=== PATIENT | female | born 1945 | race Caucasian/White ===

== ENCOUNTER 2019-06-09 10:51 | Outpatient (CLI) | payer MEDICARE, SELFPAY ==
--- NOTE | ~2019-06-09 | MM_ITS ---
EXAMINATION: MM screening [facility] HISTORY: Screening mammogram TECHNIQUE: Craniocaudal and mediolateral oblique 3-D tomosynthesis images were obtained and synthetic 2-D images were generated. CAD analysis was submitted and interpreted. COMPARISON: 05/30/2018, 05/20/2017, 05/19/2016, 04/29/1915 BREAST PARENCHYMAL COMPOSITION: There are scattered areas of fibroglandular density. FINDINGS: An asymmetry in the middle third of the right breast craniocaudal view has a stable appeara nce on multiple prior examinations. There is no evidence of suspicious mass, calcification, or franklin ectural distortion to suggest malignancy in either breast. There has been no suspicious interval kauffman ge. IMPRESSION: 1. No mammographic evidence of malignancy. 2. Recommend routine screening mammography in one year. BI-RADS Category 2: Benign finding(s). Reviewed, dictated and finalized at location A. AULIC DREDGE OPERATOR
== END 2019-06-09 10:52 | disposition home or self-care (01) ==
PROVIDERS: PCP Family Medicine; Visit Provider Family Medicine
DX: Z12.31 Encounter for screening mammogram for malignant neoplasm of breast (principal)
CPT/HCPCS: 77063; 77067

== ENCOUNTER 2020-06-11 10:23 | Outpatient (CLI) | payer MEDICARE, SELFPAY ==
--- NOTE | ~2020-06-11 | MM_ITS ---
EXAMINATION: MM screening [facility] HISTORY: Screening mammogram TECHNIQUE: Craniocaudal and mediolateral oblique 3-D tomosynthesis images were obtained and synthetic 2-D images were generated. CAD analysis was submitted and interpreted. COMPARISON: 06/09/2019, 05/30/2018, 05/20/2017, 05/19/2016 BREAST PARENCHYMAL COMPOSITION: There are scattered areas of fibroglandular density. FINDINGS: There is no evidence of suspicious mass, calcification, or architectural distortion to sugg est malignancy in either breast. There has been no suspicious interval change. IMPRESSION: 1. No mammographic evidence of malignancy. 2. Recommend routine screening mammography in one year. BI-RADS Category 1: Negative Reviewed, dictated and finalized at location A. WELL LOGGING ENGINEER
== END 2020-06-11 10:24 | disposition home or self-care (01) ==
LOC: CHSIMG 10:26
PROVIDERS: PCP Family Medicine; Visit Provider Family Medicine
DX: Z12.31 Encounter for screening mammogram for malignant neoplasm of breast (principal)
CPT/HCPCS: 77063; 77067

== ENCOUNTER 2021-06-19 10:54 | Outpatient (CLI) | payer MEDICARE, SELFPAY ==
--- NOTE | ~2021-06-19 | MM_ITS ---
EXAMINATION: MM screening [facility] HISTORY: Screening mammogram TECHNIQUE: Craniocaudal and mediolateral oblique 3-D tomosynthesis images were obtained and synthetic 2-D images were generated. CAD analysis was submitted and interpreted. COMPARISON: 06/11/2020, 06/09/2019, 05/30/2018 BREAST PARENCHYMAL COMPOSITION: There are scattered areas of fibroglandular density. FINDINGS: There is no evidence of suspicious mass, calcification, or architectural distortion to sugg est malignancy in either breast. There has been no suspicious interval change. IMPRESSION: 1. No mammographic evidence of malignancy. 2. Recommend routine screening mammography in one year. BI-RADS Category 1: Negative Reviewed, dictated and finalized at location A. OR SITE MANAGER
== END 2021-06-19 10:55 | disposition home or self-care (01) ==
LOC: CHSIMG 10:56
PROVIDERS: PCP Family Medicine; Visit Provider Family Medicine
DX: Z12.31 Encounter for screening mammogram for malignant neoplasm of breast (principal)
CPT/HCPCS: 77063; 77067

== ENCOUNTER 2021-07-12 09:47 | Outpatient (CLI) | payer MEDICARE, SELFPAY ==
[2021-07-12 14:03] LABS: SARS-CoV-2 RNA PCR Negative (Negative)
== END 2021-07-12 09:48 | disposition home or self-care (01) ==
LOC: CHSLAB 09:50
PROVIDERS: PCP Family Medicine; Visit Provider Emergency Medicine
DX: Z01.818 Encounter for other preprocedural examination (principal); Z20.822 Contact with and (suspected) exposure to COVID-19
CPT/HCPCS: C9803; U0003; U0005

== ENCOUNTER 2021-08-09 09:38 | Outpatient (CLI) | payer MEDICARE, SELFPAY ==
[2021-08-09 14:54] LABS: SARS-CoV-2 RNA PCR Negative (Negative)
== END 2021-08-09 09:39 | disposition home or self-care (01) ==
PROVIDERS: PCP Family Medicine; Visit Provider Emergency Medicine
DX: Z20.822 Contact with and (suspected) exposure to COVID-19 (principal)
CPT/HCPCS: C9803; U0003; U0005

== ENCOUNTER 2022-03-14 10:29 | Emergency (ER) | payer MEDICARE, SELFPAY ==
--- NOTE | ~2022-03-14 | CT_ITS ---
EXAMINATION: CT brain wo con DATE: 03/14/2022 11:03 INDICATION: Headache. TECHNIQUE: Computed tomography (CT) of the head was performed without intravenous contrast. The mA wa s adjusted according to patient size. Iterative reconstruction technique was employed. The dose-lengt h product was 605.33 mGy-cm. COMPARISON: None FINDINGS: There are scattered areas of low attenuation in the cerebral white matter. There is no intr acranial hemorrhage, acute infarction, or abnormal intracranial mass lesion. The ventricles are nereida l in size. There are likely changes of ocular lens replacement surgeries. There is mucosal thickening in the paranasal sinuses with thickening and sclerosis of the some of the sinus walsh, consistent wi th chronic sinusitis. The mastoid air cells are normal. IMPRESSION: 1. Moderate nonspecific cerebral white matter disease, which likely represents chronic small vessel i schemic disease. Reviewed, dictated and finalized at location A. IMPRESSION: 1. Moderate nonspecific cerebral white matter disease, which likely represents chronic small vessel ischemic disease.
[2022-03-14 10:35] VITALS: BP 175/77; PULSE 86; RESP 16; TEMP 36.2; O2SAT 95
--- NOTE | 2022-03-14 10:41 | ED.HA ---
HPI - Headache General Chief Complaint: Headache Stated Complaint: headache Time Seen by Provider: 03/14/22 10:38 Source: patient and RN notes reviewed Mode of arrival: ambulatory Limitations: no limitations History of Present Illness HPI Narrative: Patient states that this is the 1st really bad headache she has had. Usually she can take some Tylenol or Motrin and her headache goes away in a couple hours. This was been gone for 3 days. It is causing her to have the dry heaves. She denies any visual changes. MD elicited complaint: headache Onset (ago): day(s) (3) Onset description: gradually Location: frontal Severity: severe Quality & Timing: aching, dull and constant Exacerbating factors: none Relieving factors: nothing Context: occurred at rest Associated symptoms: nausea and vomiting Treatments prior to arrival: acetaminophen and ibuprofen Related Data Home Medications Medication Instructions Recorded Confirmed lisinopril 20 1 tablet PO DAILY 03/14/22 03/14/22 mg-hydrochlorothiazide 25 mg tablet metoprolol tartrate 25 mg tablet 25 mg PO DAILY 03/14/22 03/14/22 omeprazole 40 mg capsule,delayed 40 mg PO DAILY 03/14/22 03/14/22 release Allergies Allergy/AdvReac Type Severity Reaction Status Date / Time sulfanilamide Allergy Unknown Verified 01/01/16 21:13 Sulfa (Sulfonamide AdvReac Unknown VAGINAL Verified 12/24/16 06:30 Antibiotics) INFECTION Review of Systems Review of Systems: All systems reviewed & are unremarkable except as noted in HPI and below Eyes: Eyes: Denies change in vision and Denies photophobia ENT: Denies dizziness PMFSH Past Medical History Medical History (Updated 03/14/22 @ 11:35 by Chacho Leon MD) GERD (gastroesophageal reflux disease) Hypertension Surgical History Surgical History (Updated 03/14/22 @ 10:42 by Chacho Leon MD) H/O inguinal hernia repair Social History Social History Smoking status: Never smoker Second hand tobacco smoke exposure: No Alcohol intake: never Exam Const: General: healthy appearing, no acute distress and alert Nutritional Appearance: well nourished Orientation/consciousness: patient oriented x3 Limitations: no limitations HENMT: Head: normal to inspection Ears: external ears normal Face and sinus: normal facial exam Eyes: Conjunctivae: conjunctivae normal Pupils: Equal, round and reactive pupils present EOM: EOMs intact bilaterally Neck: Neck: normal visual inspection Resp: Effort & Inspection: normal respiratory effort Auscultation: clear to auscultation bilaterally Cardio: Rate: regular rate Rhythm: regular rhythm GI: GI Palp: Yes Soft to palpation and No Tenderness to palpation present (GI) Auscultation: normal bowel sounds Back/Spine/Pelvis: Cervical Spine: cervical ROM normal Thoracic/Lumbar Spine: thoraco-lumbar ROM normal Skin: General skin exam: normal color Rashes: no rashes Neuro: General: patient oriented x3, moves all extremities, no focal motor deficits and CN's II-XI intact bilaterally Cranial nerves: Yes Nystagmus not present Speech: normal speech Gait exam (Neuro): Normal gait present Extrem: General: normal to inspection and no clubbing, cyanosis or edema Psych: Mental Status: mental status grossly normal Affect: normal affect Attitude: cooperative Course Vital Signs Vital signs: Vital Signs Temperature 36.2 C L 03/14/22 10:35 Pulse Rate 86 03/14/22 10:35 Respiratory Rate 16 03/14/22 10:35 Blood Pressure 175/77 H 03/14/22 10:35 Pulse Oximetry 95 03/14/22 10:35 Oxygen Delivery Room Air 03/14/22 10:35 Temperature 36.9 C 03/14/22 12:10 Pulse Rate 84 03/14/22 12:10 Respiratory Rate 20 03/14/22 12:10 Blood Pressure 139/72 03/14/22 12:10 Pulse Oximetry 97 03/14/22 12:10 Oxygen Delivery Room Air 03/14/22 12:10 MDM - Headache MDM Narrative Medical decision making narrative: CT brain scan is negative. Patient having
[2022-03-14] MEDS: KETOROLAC 30 MG/ML VIAL (*BKC) IV PUSH (11:30)
[2022-03-14] MEDS: ONDANSETRON INJ 4 MG/2 ML VIAL IV PUSH (11:31)
[2022-03-14] MEDS: diphenhydrAMINE HCl INJ 50 MG/ML VIAL IV PUSH (11:31)
[2022-03-14 12:10] VITALS: BP 139/72; PULSE 84; RESP 20; TEMP 36.9; O2SAT 97
== END 2022-03-14 12:15 | disposition home or self-care (01) ==
PROVIDERS: Emergency Provider Emergency Medicine; PCP Family Medicine
DX: G44.209 Tension-type headache, unspecified, not intractable (principal); K21.9 Gastro-esophageal reflux disease without esophagitis; I10 Essential (primary) hypertension
CPT/HCPCS: 70450; 96374; 96375; 99284; J1200; J1885; J2405

== ENCOUNTER 2022-03-15 16:23 | Emergency (ER) | payer MEDICARE, SELFPAY ==
[2022-03-15 17:00] VITALS: BP 157/78; PULSE 75; RESP 20; TEMP 37.1; O2SAT 94
--- NOTE | 2022-03-15 17:37 | ED.HA ---
HPI - Headache General Stated Complaint: headache,nausea Time Seen by Provider: 03/15/22 16:26 Source: patient and family Mode of arrival: ambulatory Limitations: no limitations History of Present Illness HPI Narrative: this is a 76-year-old female with history of hypertension has been headaches which is frontal pressure / dull like headaches with nasal congestion bilateral ear pressure left greater than right with postnasal drip with no fever chills has been having some nausea with episodes of vomiting, with no shortness of breath no chest pain. The patient was seen in the emergency department yesterday and had a CT scan which showed no acute abnormalities and was given a injection of pain medicine which relieved her her headache at that time. Currently there is no blurry vision, no neck pain no neck stiffness no fever chills. MD elicited complaint: headache Onset (ago): day(s) Onset description: gradually Location: frontal Severity: moderate Pain scale (0-10): 6 Quality & Timing: dull and steady Exacerbating factors: none Relieving factors: nothing Context: occurred at rest Associated symptoms: nausea and vomiting Related Data Home Medications Medication Instructions Recorded Confirmed lisinopril 20 1 tablet PO DAILY 03/14/22 03/14/22 mg-hydrochlorothiazide 25 mg tablet metoprolol tartrate 25 mg tablet 25 mg PO DAILY 03/14/22 03/14/22 omeprazole 40 mg capsule,delayed 40 mg PO DAILY 03/14/22 03/14/22 release Allergies Allergy/AdvReac Type Severity Reaction Status Date / Time sulfanilamide Allergy Unknown Verified 01/01/16 21:13 Sulfa (Sulfonamide AdvReac Unknown VAGINAL Verified 12/24/16 06:30 Antibiotics) INFECTION Review of Systems Review of Systems: All systems reviewed & are unremarkable except as noted in HPI and below PMFSH Past Medical History Medical History GERD (gastroesophageal reflux disease) Hypertension Surgical History Surgical History H/O inguinal hernia repair Social History Social History Smoking status: Never smoker Second hand tobacco smoke exposure: No Alcohol intake: never Exam Const: General: healthy appearing Nutritional Appearance: well nourished Orientation/consciousness: patient oriented x3 Limitations: no limitations HENMT: Head: normal to inspection Face/Nose/Sinus: Nasal discharge present Face and sinus: normal facial exam and sinus tenderness Mouth: Yes Abnormal oral and palatal mucosa present Teeth and gingiva: dentition normal Throat: posterior oropharynx normal Other: Frontal sinus tenderness with palpation Eyes: Conjunctivae: conjunctivae normal Pupils: Equal, round and reactive pupils present EOM: EOMs intact bilaterally Neck: Neck: normal visual inspection Chest: Chest palpation & inspection: normal inspection of the chest Resp: Effort & Inspection: normal respiratory effort Auscultation: clear to auscultation bilaterally Cardio: Rate: regular rate Rhythm: regular rhythm GI: GI Palp: Yes Soft to palpation Auscultation: normal bowel sounds Urinary Catheter: Urinary Catheter: patent and draining Skin: General skin exam: normal color Rashes: no rashes Wounds: no wounds Neuro: General: patient oriented x3, moves all extremities, no meningeal signs and no focal motor deficits Cranial nerves: Yes Nystagmus not present Speech: normal speech Gait exam (Neuro): Normal gait present Extrem: General: normal to inspection and no clubbing, cyanosis or edema Psych: Mental Status: mental status grossly normal Affect: normal affect Course Course Emergency Course: patient received IM Toradol and ODT Zofran and a dose of ceftriaxone otherwise reassured patient that with her symptoms she has sinusitis which is causing her headaches. Vital Signs Vital signs: Vital S
[2022-03-15] MEDS: KETOROLAC 30 MG/ML VIAL (*BKC) IM (18:15)
[2022-03-15] MEDS: cefTRIAXone 1 GM, LIDOCAINE HCL 1% LOCAL INJ 2.1 ML IM (18:16)
[2022-03-15] MEDS: ONDANSETRON HCL ODT 4 MG TABLET PO (18:17)
[2022-03-15 18:23] VITALS: BP 140/77; PULSE 68; RESP 20; TEMP 36.9; O2SAT 95
== END 2022-03-15 18:40 | disposition home or self-care (01) ==
PROVIDERS: Emergency Provider Emergency Medicine; PCP Family Medicine
DX: R51.9 Headache, unspecified (principal); J01.10 Acute frontal sinusitis, unspecified; K21.9 Gastro-esophageal reflux disease without esophagitis; I10 Essential (primary) hypertension
CPT/HCPCS: 96372; 99284; A9270; J0696; J1885

== ENCOUNTER 2022-03-19 11:03 | Outpatient (CLI) | payer MEDICARE, SELFPAY ==
[2022-03-19 11:19] LABS: Basophils Absolute Auto 0.02 K/mm3 (0.00-0.10); Basophils Percent Auto 0.4 % (0.0-1.0); Hematocrit 45.1 % (35.0-42.0); Hemoglobin 15.9 g/dL (11.7-13.8); Immature Granulocyte Absolute 0.02 K/mm3 (0.00-0.00); Immature Granulocyte Percent A 0.4 % (0.0-0.0); Lymphocytes Absolute Auto 0.95 K/mm3 (1.10-4.50); Lymphocytes Percent Auto 18.2 % (18.0-42.0); Mean Corpuscular HGB Conc 35.3 g/dL (32.0-36.0); Mean Corpuscular Hemoglobin 26.8 pg (27.0-31.0); Mean Corpuscular Volume 75.9 fL (78.0-102.0); Mean Platelet Volume 9.2 fl (9.2-11.8); Monocytes Absolute Auto 0.77 K/mm3 (0.10-0.90); Monocytes Percent Auto 14.7 % (2.0-11.0); Neutrophils Absolute Auto 3.5 K/mm3 (1.7-7.2); Neutrophils Percent Auto 66.3 % (50.0-70.0); Platelet Count Result 255 K/mm3 (150-420); Red Blood Count 5.94 M/mm3 (4.20-5.40); Red Cell Distribution Width 12.3 % (11.6-14.4); White Blood Count 5.2 K/mm3 (4.8-10.8)
[2022-03-19 12:19] LABS: Alanine Aminotransferase 57 U/L (14-59); Albumin Level 3.6 g/dL (3.4-5.0); Alkaline Phosphatase 92 U/L (46-116); Amylase 21 U/L (25-115); Aspartate Amino Transferase 45 U/L (15-37); Bilirubin,Total 0.8 mg/dL (0.00-1.00); Blood Urea Nitrogen 9 mg/dL (7-18); Calcium 8.4 mg/dL (8.5-10.1); Carbon Dioxide 24 mmol/L (21-32); Estimated Glomerular Filt Rate > 60; Glucose 80 mg/dL (70-99); Lipase 120 U/L (73-393); Thyroid Stimulating Hormone 0.47 uIU/mL (0.36-3.74)
[2022-03-19 12:27] LABS: Anion Gap 12 mmol/L (8-16); Chloride 77 mmol/L (98-108); Osmolality Calculated 233 mOsm/kg (285-295); Potassium 3.3 mmol/L (3.5-5.1)
[2022-03-19 12:30] LABS: Sodium 113 mmol/L (136-145)
[2022-03-19 15:45] LABS: Appearance Urine Clear (Clear); Color Urine Light Yellow (Yellow)
[2022-03-19 15:46] LABS: Add Urine Microscopic? YES; Bilirubin Urine Negative (Negative); Blood Urine Negative (Negative); Glucose Urine UA Negative (Negative); Ketones Urine 3+ (Negative); Leukocyte Esterase Ur 2+ LEU/UL (Negative); Nitrate Urine Negative (Negative); Protein Urine Trace (Negative); RBC Urine None seen /hpf (0-2); Specific Grav Ur 1.025 (1.010-1.020); Urobilinogen Urine 0.2 mg/dL (0.2-1.0)
[2022-03-19 15:47] LABS: Bacteria Urine 1+ /hpf; Squamous Epithelial Cell Urine Few /hpf (Few)
== END 2022-03-19 11:04 | disposition home or self-care (01) ==
LOC: CHSLAB 11:05
PROVIDERS: PCP Family Medicine; Visit Provider Family Medicine
DX: R11.10 Vomiting, unspecified (principal); I10 Essential (primary) hypertension; R82.90 Unspecified abnormal findings in urine
CPT/HCPCS: 99199; 36415; 80053; 81001; 82150; 83690; 84443; 85025; 87086; 87088

== ENCOUNTER 2022-03-19 13:43 | Inpatient (IN) | payer MEDICARE, SELFPAY ==
[2022-03-19] VITALS (7 sets, daily range): BP systolic 97–147; BP diastolic 68–80; PULSE 67–80; RESP 16–18; TEMP 36.9–37.3; O2SAT 96–98; BMI 31.3
--- NOTE | 2022-03-19 14:07 | ED.GENADULT ---
HPI - General Adult General Chief complaint: Unspecified Stated complaint: CRITICAL BLOOD WORK Time Seen by Provider: 03/19/22 13:56 History of Present Illness HPI narrative: Margaux is a 76F with a PMH of GERD and HTN that presented to the ED with a critical sodium of 113. She has been feeling ill for 7 days. She started to have a headache for the first 3 days then became very nauseated and started to dry heave. She has not tolerated much PO since and continues to get worse. Headache is improved. There is no CP, SOB, or diarrhea. Related Data Home Medications Medication Instructions Recorded Confirmed lisinopril 20 1 tablet PO DAILY 03/14/22 03/19/22 mg-hydrochlorothiazide 25 mg tablet metoprolol tartrate 25 mg tablet 25 mg PO DAILY 03/14/22 03/19/22 omeprazole 40 mg capsule,delayed 40 mg PO DAILY 03/14/22 03/19/22 release Allergies Allergy/AdvReac Type Severity Reaction Status Date / Time sulfanilamide Allergy Unknown Unknown Verified 03/19/22 14:00 Sulfa (Sulfonamide AdvReac Unknown VAGINAL Verified 03/19/22 14:00 Antibiotics) INFECTION Review of Systems Review of Systems: All systems reviewed & are unremarkable except as noted in HPI and below PMFSH Past Medical History Medical History GERD (gastroesophageal reflux disease) Hypertension Surgical History Surgical History H/O inguinal hernia repair Social History Social History Smoking status: Never smoker Second hand tobacco smoke exposure: No Alcohol intake: never Exam Const: Orientation/consciousness: oriented to person, oriented to place and oriented to time Limitations: no limitations HENMT: Head: normal to inspection and normocephalic Other: dry mucous membranes Eyes: General: appearance normal, both eyes and all related structures Visual Vazquez: normal visual vazquez by confrontation Neck: Neck: normal visual inspection Chest: Chest palpation & inspection: normal inspection of the chest Resp: Effort & Inspection: normal respiratory effort Auscultation: clear to auscultation bilaterally Cardio: Jugular venous distension: no JVD Rate: regular rate Rhythm: regular rhythm GI: Inspection: normal to inspection Skin: General skin exam: normal color Other: skin tenting Neuro: General: oriented to person, oriented to place and oriented to time Psych: Appearance: grossly normal and well kempt Mental Status: mental status grossly normal Course Course Emergency Course: Na was 112 and K+ was 3.0. Started IV fluids. Called Damaso who accepted admission at 1514. She was admitted for further care Vital Signs Vital signs: Vital Signs Temperature 98.5 F 03/19/22 14:02 Pulse Rate 75 03/19/22 14:02 Respiratory Rate 18 03/19/22 14:02 Blood Pressure 147/80 H 03/19/22 14:02 Pulse Oximetry 96 03/19/22 14:02 Oxygen Delivery Room Air 03/19/22 14:02 Temperature 99.1 F 03/19/22 17:56 Pulse Rate 80 03/19/22 17:56 Respiratory Rate 16 03/19/22 17:56 Blood Pressure 137/70 03/19/22 17:56 Pulse Oximetry 97 03/19/22 17:56 Oxygen Delivery Room Air 03/19/22 17:56 Medical Decision Making Vital Signs Vital Signs: Vital Signs Temperature 98.5 F 03/19/22 14:02 Pulse Rate 75 03/19/22 14:02 Respiratory Rate 18 03/19/22 14:02 Blood Pressure 147/80 H 03/19/22 14:02 Pulse Oximetry 96 03/19/22 14:02 Oxygen Delivery Room Air 03/19/22 14:02 Temperature 99.1 F 03/19/22 17:56 Pulse Rate 80 03/19/22 17:56 Respiratory Rate 16 03/19/22 17:56 Blood Pressure 137/70 03/19/22 17:56 Pulse Oximetry 97 03/19/22 17:56 Oxygen Delivery Room Air 03/19/22 17:56 Lab Data Result diagrams: 03/19/22 14:05 Labs: Lab Results 03/19/22 03/19/22 03/19/22 Range/Units 14:05 1
[2022-03-19 14:49] LABS: Appearance Urine Clear (Clear); Bilirubin Urine Negative (Negative); Blood Urine Negative (Negative); Glucose Urine UA Negative (Negative); Ketones Urine 3+ (Negative); Leukocyte Esterase Ur 2+ (Negative); Nitrate Urine Negative (Negative); Protein Urine Trace (Negative); Specific Grav Ur 1.025 (1.010-1.020); Urobilinogen Urine 0.2 mg/dL (0.2-1.0)
[2022-03-19 14:54] LABS: Add Urine Microscopic? YES; Bacteria Urine 1+ /hpf; Color Urine Light Yellow (Yellow); Creatinine Urine 107.09 mg/dL (40-278); RBC Urine None seen /hpf (0-2); Sodium Urine Random 43 mmol/L (20-110); Squamous Epithelial Cell Urine Few /hpf (Few)
[2022-03-19 15:04] LABS: Alanine Aminotransferase 50 U/L (14-59); Albumin Level 3.5 g/dL (3.4-5.0); Alkaline Phosphatase 90 U/L (46-116); Anion Gap 12 mmol/L (8-16); Aspartate Amino Transferase 41 U/L (15-37); Bilirubin,Total 0.7 mg/dL (0.00-1.00); Blood Urea Nitrogen 8 mg/dL (7-18); Calcium 8.2 mg/dL (8.5-10.1); Carbon Dioxide 23 mmol/L (21-32); Chloride 77 mmol/L (98-108); Estimated CRCL calculation 80 ml/min; Estimated Glomerular Filt Rate > 60; Glucose 80 mg/dL (70-99); Osmolality Calculated 231 mOsm/kg (285-295); Total Protein 7.1 g/dL (6.4-8.2)
[2022-03-19 15:05] LABS: Sodium 112 mmol/L (136-145)
[2022-03-19] MEDS: ONDANSETRON INJ 4 MG/2 ML VIAL IV PUSH ×2 (15:17→19:57)
[2022-03-19] MEDS: SODIUM CHLORIDE 0.9% IV 1,000 ML 200 ML IV CONT (15:17)
[2022-03-19 15:23] LABS: Influenza A QL RT-PCR Negative (Negative); Influenza B QL RT-PCR Negative (Negative)
[2022-03-19 15:25] LABS: RSV RNA, RT-PCR Negative (Negative)
[2022-03-19 15:38] LABS: SARS-CoV-2 RNA PCR Positive (Negative)
--- NOTE | 2022-03-19 17:12 | ECG_ITS ---
Measurements Intervals [place] Rate: 70 P: 66 OK: 196 QRS: -2 QRSD: 94 T: 16 QT: 422 QTc: 456 Interpretive Statements SINUS RHYTHM EARLY PRECORDIAL R/S TRANSITION BASELINE ARTIFACT- I, II, III, AVR, AVL, AVF BORDERLINE ECG NO PREVIOUS ECG AVAILABLE FOR COMPARISON Electronically Signed On 03-19-2022 20:10:17 [employer] by Edgardo Marquis D.O.
[2022-03-19] MEDS: SODIUM CHLORIDE 0.9% IV 1,000 ML 100 ML IV CONT ×2 (17:30→23:12)
--- NOTE | 2022-03-19 17:30 | ADMGEN ---
This patient, Margaux Saldivar, was admitted to 2nd Floor Room 208-1. Patient/family oriented to hospital policies and general routines including ID bracelet, bed and alarms, visiting hours, pain management, procedures, bathroom and other care routines, personal items, smoking policy, room service/diet, and visiting hours. Information on how to activate the Rapid Response Team has been discussed. Patient/Family are encouraged to report perceived risks to care and to ask questions if they do not understand what they are told or what they should do.
[2022-03-20] VITALS (10 sets, daily range): BP systolic 119–153; BP diastolic 54–79; PULSE 66–89; RESP 16–18; TEMP 36.6–37; O2SAT 95–97
[2022-03-20 05:12] LABS: Basophils Absolute Auto 0.02 K/mm3 (0.00-0.10); Basophils Percent Auto 0.4 % (0.0-1.0); Eosinophils Absolute Auto 0.02 K/mm3 (0.02-0.50); Eosinophils Percent Auto 0.4 % (1.0-6.0); Hematocrit 40.4 % (35.0-42.0); Hemoglobin 14.3 g/dL (11.7-13.8); Immature Granulocyte Absolute 0.01 K/mm3 (0.00-0.00); Immature Granulocyte Percent A 0.2 % (0.0-0.0); Lymphocytes Absolute Auto 1.56 K/mm3 (1.10-4.50); Lymphocytes Percent Auto 31.3 % (18.0-42.0); Mean Corpuscular HGB Conc 35.4 g/dL (32.0-36.0); Mean Corpuscular Hemoglobin 27.2 pg (27.0-31.0); Mean Corpuscular Volume 76.8 fL (78.0-102.0); Mean Platelet Volume 9.6 fl (9.2-11.8); Monocytes Absolute Auto 0.58 K/mm3 (0.10-0.90); Monocytes Percent Auto 11.6 % (2.0-11.0); Neutrophils Absolute Auto 2.8 K/mm3 (1.7-7.2); Neutrophils Percent Auto 56.1 % (50.0-70.0); Platelet Count Result 227 K/mm3 (150-420); Red Blood Count 5.26 M/mm3 (4.20-5.40); Red Cell Distribution Width 12.5 % (11.6-14.4)
[2022-03-20 05:22] LABS: Anion Gap 13 mmol/L (8-16); Blood Urea Nitrogen 7 mg/dL (7-18); Calcium 7.7 mg/dL (8.5-10.1); Carbon Dioxide 21 mmol/L (21-32); Chloride 86 mmol/L (98-108); Estimated CRCL calculation 80 ml/min; Estimated Glomerular Filt Rate > 60; Glucose 72 mg/dL (70-99); Osmolality Calculated 247 mOsm/kg (285-295)
[2022-03-20 05:23] LABS: Potassium 2.5 mmol/L (3.5-5.1); Sodium 120 mmol/L (136-145)
--- NOTE | 2022-03-20 05:25 | PC.NURSE ---
Lab called to report critical sodium value of 120.
--- NOTE | 2022-03-20 05:52 | PC.NURSE ---
Allan Fernandez NP, notified of critical sodium value of 120; No new orders at this time.
--- NOTE | 2022-03-20 08:07 | PC.NURSE ---
patient changed to IP status
[2022-03-20] MEDS: KCL 20 MEQ/SW 100 ML 100 ML 50 MEQ IVPB (09:17)
[2022-03-20] MEDS: METOPROLOL TARTRATE 25 MG TABLET PO (09:18)
[2022-03-20] MEDS: PANTOPRAZOLE SODIUM IV 40 MG VIAL IV PUSH (09:18)
[2022-03-20] MEDS: SODIUM CHLORIDE 0.9% IV 1,000 ML 75 ML IV CONT ×3 (10:05→23:52)
--- NOTE | 2022-03-20 10:35 | PM.IMHP ---
H&P: HPI History of Present Illness Date/Time: 03/20/22 10:35 Chief Complaint: Hyponatremia, Covid, diarrhea, Nausea and vomiting Narrative: This is a 6-year-old female that presents to the emergency room complaining of nausea vomiting dry heaving and diarrhea this been going on for approximately 4-5 days. Patient has been in the emergency room 3 times over the last week and she also have a headache. Patient has a past medical history of hypertension, acid reflux. Patient denies: Her primary care provider when she arrives she tested positive for COVID she was hyponatremic at 112 initially hypokalemic at 3.0 this morning she is currently 3 2.5 receiving IV potassium. Patient has been placed in isolation for droplet precautions as well as receiving some IV fluids with some fluid restriction as well as symptomatic treating for any COVID like symptoms patient has been placed as an patient is on a tele monitor. We will continue to slowly raise her sodium levels every planus her potassium this time patient does not have any nausea vomiting and/or diarrhea. Review of Systems Review of Systems: nausea, vomiting, diarrhea All systems reviewed & are unremarkable except as noted in HPI and below PMFSH Past Medical History Medical History (Updated 03/20/22 @ 10:40 by Damaso Fernandez NP) GERD (gastroesophageal reflux disease) Hypertension Surgical History Surgical History H/O inguinal hernia repair Social History Social History Smoking status: Never smoker Second hand tobacco smoke exposure: No Alcohol intake: unknown Substance use: unknown Lack of Transportation: No Lack of Food: Never True Current Housing: I Have Housing Concerned About Future Housing: No Difficulty Paying Gas/Electric Bills: No Difficulty Paying for Meds: No Currently Unemployed: No Education: High School Diploma/GED Difficulty w/ Childcare or Family Care: No Spiritual care concerns: No Comments At time as signature, I have reviewed and agree with nursing past medical, social, surgical and family history. Please see nursing chart for further information. There is no relevant family history pertinent to the presenting complaint. Meds Home Medications and Allergies Home Medications Medication Instructions Recorded Confirmed Type lisinopril 20 1 tablet PO DAILY 03/14/22 03/19/22 History mg-hydrochlorothiazide 25 mg tablet metoprolol tartrate 25 mg tablet 25 mg PO DAILY 03/14/22 03/19/22 History omeprazole 40 mg capsule,delayed 40 mg PO DAILY 03/14/22 03/19/22 History release azithromycin 250 mg tablet See Rx Instructions PO .COMPLEX #6 03/15/22 03/19/22 Rx (Zithromax Z-Yogesh) tabs fluticasone propionate 50 2 spray intranasal DAILY #16 grams 03/15/22 03/19/22 Rx mcg/actuation nasal spray,suspension (Flonase Allergy Relief) ondansetron 4 mg disintegrating 4 mg PO Q6H PRN nausea and 03/15/22 03/19/22 Rx tablet vomiting #7 tabs tramadol 50 mg tablet 50 mg PO Q6H PRN pain #20 tabs 03/15/22 03/19/22 Rx Allergies Allergy/AdvReac Type Severity Reaction Status Date / Time sulfanilamide Allergy Unknown Unknown Verified 03/19/22 14:00 Sulfa (Sulfonamide AdvReac Unknown VAGINAL Verified 03/19/22 14:00 Antibiotics) INFECTION Vital Signs Vital Signs - 24 hr 03/19/22 14:02 03/19/22 16:42 03/19/22 17:56 Temperature 98.5 F 99.1 F Pulse Rate 75 70 80 Respiratory Rate 18 18 16 Blood Pressure 147/80 H 97/73 L 137/70 Pulse Oximetry 96 98 97 Oxygen Delivery Room Air Room Air Room Air 03/19/22 19:41 03/19/22 21:39 03/19/22 23:22 Temperature 98.7 F 98.6 F Pulse Rate 72 70 71 Respiratory Rate 16 17 Blood Pressure 138/68 146/68 H Pulse Oximetry 97 96 Oxygen Delivery Room Air Room Air 03/19/22 23:23 03/20/22 03:20 03/20/22 04:00 Temperature 98.5 F Pulse Rate 67 70 88 Res
[2022-03-21] VITALS (10 sets, daily range): BP systolic 118–147; BP diastolic 53–73; PULSE 64–90; RESP 15–18; TEMP 36.7–37.1; O2SAT 94–96
[2022-03-21 06:59] LABS: Basophils Absolute Auto 0.03 K/mm3 (0.00-0.10); Basophils Percent Auto 0.5 % (0.0-1.0); Eosinophils Absolute Auto 0.03 K/mm3 (0.02-0.50); Eosinophils Percent Auto 0.5 % (1.0-6.0); Hematocrit 40.8 % (35.0-42.0); Immature Granulocyte Absolute 0.02 K/mm3 (0.00-0.00); Immature Granulocyte Percent A 0.4 % (0.0-0.0); Lymphocytes Absolute Auto 1.94 K/mm3 (1.10-4.50); Mean Corpuscular HGB Conc 34.3 g/dL (32.0-36.0); Mean Corpuscular Hemoglobin 26.7 pg (27.0-31.0); Mean Corpuscular Volume 77.9 fL (78.0-102.0); Mean Platelet Volume 9.6 fl (9.2-11.8); Monocytes Absolute Auto 0.57 K/mm3 (0.10-0.90); Monocytes Percent Auto 10.3 % (2.0-11.0); Neutrophils Percent Auto 53.3 % (50.0-70.0); Platelet Count Result 224 K/mm3 (150-420); Red Blood Count 5.24 M/mm3 (4.20-5.40); White Blood Count 5.5 K/mm3 (4.8-10.8)
[2022-03-21 07:15] LABS: Alanine Aminotransferase 39 U/L (14-59); Albumin Level 2.8 g/dL (3.4-5.0); Alkaline Phosphatase 68 U/L (46-116); Anion Gap 10 mmol/L (8-16); Aspartate Amino Transferase 29 U/L (15-37); Bilirubin,Total 0.5 mg/dL (0.00-1.00); Blood Urea Nitrogen 6 mg/dL (7-18); Calcium 7.6 mg/dL (8.5-10.1); Carbon Dioxide 24 mmol/L (21-32); Chloride 96 mmol/L (98-108); Estimated CRCL calculation 80 ml/min; Estimated Glomerular Filt Rate > 60; Glucose 86 mg/dL (70-99); Osmolality Calculated 266 mOsm/kg (285-295); Sodium 130 mmol/L (136-145); Total Protein 5.9 g/dL (6.4-8.2)
[2022-03-21] MEDS: PANTOPRAZOLE SODIUM IV 40 MG VIAL IV PUSH (08:44)
[2022-03-21] MEDS: METOPROLOL TARTRATE 25 MG TABLET PO (08:44)
[2022-03-21] MEDS: POTASSIUM CHLORIDE 20 MEQ TABLET PO ×2 (08:44→17:50)
--- NOTE | 2022-03-21 11:26 | WPDPN ---
Progress Note: A&P Assessment and Plan (1) Acute hyponatremia: Code(s): E87.1 - Hypo-osmolality and hyponatremia Status: Acute Assessment and Plan: Fluid restriction 1800 ml IVF hold diuretics monitor level raise slowly level 113>120>130 (2) COVID-19: Code(s): U07.1 - COVID-19 Status: Acute Assessment and Plan: Droplet isolation monitor for symptoms and treat No Covid symptoms (3) Hypertension: Code(s): I10 - Essential (primary) hypertension Status: Acute Assessment and Plan: monitor blood pressure continue w home medication adjust accordingly blood pressure remains within normal limt (4) GERD (gastroesophageal reflux disease): Code(s): K21.9 - Gastro-esophageal reflux disease without esophagitis Status: Acute Assessment and Plan: Protonix No nausea and or vomiting Resolved (5) UTI (urinary tract infection): Code(s): N39.0 - Urinary tract infection, site not specified Status: Acute Assessment and Plan: Culture sent [place] (6) Hypokalemia: Code(s): E87.6 - Hypokalemia Status: Acute Assessment and Plan: 2.5>3.0 IV potassium 03/20 oral potassium 03/22 will continue to monitor electrolytes Subjective Date/time seen: 03/21/22 11:26 Interval history: Patient is looking and doing a lot better. Her sodium is currently 130 with no nausea and or vomiting she is up in a chair with no covid symptom noted. Patient continues to remain afebrile and she is eating and drinking without difficulties. Discussed with patient she will stay one more night with plan to discharge in the morning. Review of Systems Review of Systems: All systems reviewed & are unremarkable except as noted in HPI and below Exam Narrative: GENERAL:Well-appearing,frail , and in no acute distress. HEAD:Normocephalic, atraumatic. EYES: PERRLA . ENT: Mucous membranes moist. CHEST: Clear to auscultation. No respiratory distress. HEART: Regular rate and rhythm Normal peripheral pulses. ABDOMEN: Soft, nontender, nondistended, normal active bowel sounds. EXTREMITIES: Normal range of motion. No edema. SKIN: Warm, dry, no rash. NEURO: No focal deficits. Alert and oriented x3. Objective Data Vital Signs Vital Signs: Vital Signs - 24 hr 03/20/22 12:00 03/20/22 12:00 03/20/22 16:30 Temperature 98.5 F Pulse Rate 75 75 81 Respiratory Rate 16 Blood Pressure 129/62 Pulse Oximetry 97 Oxygen Delivery Room Air 03/20/22 16:30 03/20/22 19:45 03/20/22 20:00 Temperature 98.3 F 98.6 F Pulse Rate 66 70 70 Respiratory Rate 18 16 Blood Pressure 119/54 L 140/68 Pulse Oximetry 97 96 Oxygen Delivery Room Air Room Air 03/20/22 23:03 03/21/22 00:00 03/21/22 03:12 Temperature 98.7 F Pulse Rate 89 64 90 Respiratory Rate 15 Blood Pressure 118/63 Pulse Oximetry 95 Oxygen Delivery Room Air 03/21/22 04:00 03/21/22 07:50 03/21/22 08:05 Temperature 98.3 F 98.2 F Pulse Rate 76 73 82 Respiratory Rate 16 16 Blood Pressure 122/73 129/69 Pulse Oximetry 94 96 Oxygen Delivery Room Air Room Air 03/21/22 08:44 Temperature Pulse Rate 73 Respiratory Rate Blood Pressure Pulse Oximetry Oxygen Delivery Intake/Output Intake/Output: Intake & Output 03/18/22 03/19/22 03/20/22 03/21/22 23:59 23:59 23:59 23:59 Intake Total 1360 3086.25 280 Output Total 2250 1650 Balance 1360 836.25 -1370 Meds/Results Medications: Active Medications Generic Name Dose Route Start Last Admin Trade Name Freq PRN Reason Stop Dose Admin Acetaminophen 650 mg 03/19/22 15:23 Acetaminophen 325 Mg Tablet PO Q6H PRN Mild Pain (1-3) or Fever Enoxaparin Sodium 40 mg 03/20/22 09:00 03/21/22 08:45 Enoxaparin 40 Mg/0.4 Ml Syringe SUB-Q Not Given DAILY CRYSTAL Sodium Chloride 1,000 mls @ 75 mls/hr 03/19/22 15:25 03/20/22 23:52 Normal Salin
[2022-03-22 03:04] LABS: Osmolality, Urine 751 mOsm/kg (50-1200)
--- NOTE | 2022-03-22 03:19 | PC.NURSE ---
Patient was sleeping when the 3 am rounding was completed. Patient appeared to be comfortable, and her call light and water was within reach.
[2022-03-22 05:21] LABS: Hematocrit 38.8 % (35.0-42.0); Hemoglobin 13.2 g/dL (11.7-13.8); Mean Corpuscular Hemoglobin 26.8 pg (27.0-31.0); Mean Corpuscular Volume 78.7 fL (78.0-102.0); Mean Platelet Volume 9.6 fl (9.2-11.8); Platelet Count Result 225 K/mm3 (150-420); Red Blood Count 4.93 M/mm3 (4.20-5.40); Red Cell Distribution Width 13.2 % (11.6-14.4); White Blood Count 4.7 K/mm3 (4.8-10.8)
[2022-03-22 05:39] LABS: Anion Gap 8 mmol/L (8-16); Blood Urea Nitrogen 5 mg/dL (7-18); Carbon Dioxide 26 mmol/L (21-32); Chloride 97 mmol/L (98-108); Estimated CRCL calculation 89 ml/min; Estimated Glomerular Filt Rate > 60; Glucose 116 mg/dL (70-99); Osmolality Calculated 270 mOsm/kg (285-295); Potassium 3.4 mmol/L (3.5-5.1); Sodium 131 mmol/L (136-145)
[2022-03-22 08:00] VITALS: BP 130/65; PULSE 75; RESP 16; TEMP 36.8; O2SAT 94
--- NOTE | 2022-03-22 08:47 | PM.DS ---
DS: Admitting Diagnosis Discharge Date 03/22/2022 Admitting Diagnosis Urinary Tract infection , COVID, Hyponatremia DS: Discharge Diagnosis Discharge Diagnosis (1) Hypokalemia: Code(s): E87.6 - Hypokalemia Status: Acute Assessment and Plan: 2.5>3.0 IV potassium 03/20 oral potassium 03/22 will continue to monitor electrolytes (2) UTI (urinary tract infection): Code(s): N39.0 - Urinary tract infection, site not specified Status: Acute Assessment and Plan: Culture sent [place] (3) COVID-19: Code(s): U07.1 - COVID-19 Status: Acute Assessment and Plan: Droplet isolation monitor for symptoms and treat No Covid symptoms (4) Hypertension: Code(s): I10 - Essential (primary) hypertension Status: Acute Assessment and Plan: monitor blood pressure continue w home medication adjust accordingly blood pressure remains within normal limt (5) Acute hyponatremia: Code(s): E87.1 - Hypo-osmolality and hyponatremia Status: Acute Assessment and Plan: Fluid restriction 1800 ml IVF hold diuretics monitor level raise slowly level 113>120>130 (6) GERD (gastroesophageal reflux disease): Code(s): K21.9 - Gastro-esophageal reflux disease without esophagitis Status: Acute Assessment and Plan: Protonix No nausea and or vomiting Resolved DS: Summary Hospital Course Reason for hospitalization: Covid, hyponatremia, hypokalemia. n./v Hospital Course: This is a 76-year-old female that was admitted to the hospital with COVID found to be hyponatremic at 1:12 a.m., and hypokalemic at 2.9 patient received some IV potassium her current potassium level is 4.3, patient was placed on fluid restriction as well as received some IV fluids current sodium is 133. Patient was positive for COVID but had no respiratory issues noted patient had no nausea or vomiting during her stay was able to eat and drink without any disc focal days. Patient has continued to improve she has remained afebrile sitting up to a chair headache has since resolved. We have since ordered patient some oral Zofran and we continue to monitor her electrolytes and she has remained stable at this time patient will discharge home with follow-up with her primary care provider. Any anticipatory needs have been discussed with patient when to return to the hospital. Patient is a knowledge understanding and is in agreement with plan. Current vitals is 130/65, 84 pulse, respirations 16, temp is 98.3?, 96% on room air, potassium 4.3, sodium is 133, BUN is 10, creatinine 0.63, WBCs 7.7, hemoglobin is 14, and platelets are 421 Time Spent with Patient Time attestation: Total time spent providing and/or coordinating discharge services: Exam Narrative: GENERAL:Well-appearing,frail , and in no acute distress. HEAD:Normocephalic, atraumatic. EYES: PERRLA . ENT: Mucous membranes moist. CHEST: Clear to auscultation. No respiratory distress. HEART: Regular rate and rhythm Normal peripheral pulses. ABDOMEN: Soft, nontender, nondistended, normal active bowel sounds. EXTREMITIES: Normal range of motion. No edema. SKIN: Warm, dry, no rash. NEURO: No focal deficits. Alert and oriented x3. DS: Data Data Completed and Pending Labs on day of discharge: Labs from last 24 hours 03/22/22 03/22/22 03/19/22 05:03 05:03 14:05 WBC 4.7 L RBC 4.93 Hgb 13.2 Hct 38.8 MCV 78.7 MCH 26.8 L MCHC 34.0 RDW 13.2 Plt Count 225 MPV 9.6 Sodium 131 L Potassium 3.4 L Chloride 97 L Carbon Dioxide 26 Anion Gap 8 BUN 5 L Creatinine 0.43 L Estim Creat Clear Calc 89 Estimated GFR > 60 Glucose 116 H Calculated Osmolality 270 L Calcium 8.0 L Urine Osmolality 751 Discharge Plan Discharge Attending physician on discharge: Caleb Ruiz Consulting providers: Damaso Fernandez
[2022-03-22] MEDS: ENOXAPARIN 40 MG/0.4 ML SYRINGE SUB-Q (08:49)
[2022-03-22 08:50] VITALS: PULSE 84
[2022-03-22] MEDS: POTASSIUM CHLORIDE 20 MEQ TABLET PO (08:50)
[2022-03-22] MEDS: METOPROLOL TARTRATE 25 MG TABLET PO (08:50)
[2022-03-22] MEDS: PANTOPRAZOLE SODIUM IV 40 MG VIAL IV PUSH (08:52)
--- NOTE | 2022-03-22 10:35 | PC.NURSE ---
Ball Holder explained discharge instructions to patient and patient voiced understanding. IV access removed in preparation for discharge.
--- NOTE | 2022-03-22 10:40 | PC.NURSE ---
Patient discharged to home. Patient left unit in w/c accompanied by nurse. Personal belongings sent home with patient. Patient voiced understanding of discharge instructions. Patient left property in private vehicle.
--- NOTE | 2022-03-24 09:44 | PC.NURSE ---
Pt states she received and understood her discharge instructions. Pt states she is not happy with the ER and would like a survey sent to her. title department manager notified.
== END 2022-03-22 10:40 | disposition home or self-care (01) | DRG 178 ==
LOC: CHSED 14:53 → CHS2ND 18:37
PROVIDERS: Nurse Practitioner Family; Admitting Provider Internal Medicine; Emergency Provider Family Medicine; PCP Family Medicine; Visit Provider Internal Medicine
DX: U07.1 COVID-19 (principal); E87.1 Hypo-osmolality and hyponatremia; N39.0 Urinary tract infection, site not specified; E87.6 Hypokalemia; K21.9 Gastro-esophageal reflux disease without esophagitis; I10 Essential (primary) hypertension
CPT/HCPCS: 36415; 80048; 80053; 81001; 82150; 82570; 83690; 83935; 84300; 84443; 84540; 85025; 85027; 87086; 87088; 87502; 87634; 93005; 96361; 96374; 96376; 99285; A9270; C9113; G0378; J0696; J1650; J2405; J3480; J7030; U0003; U0005

== ENCOUNTER 2022-03-28 10:49 | Outpatient (CLI) | payer MEDICARE, SELFPAY ==
[2022-03-28 11:06] LABS: Basophils Absolute Auto 0.05 K/mm3 (0.00-0.10); Basophils Percent Auto 0.7 % (0.0-1.0); Eosinophils Absolute Auto 0.06 K/mm3 (0.02-0.50); Eosinophils Percent Auto 0.8 % (1.0-6.0); Hematocrit 42.3 % (35.0-42.0); Immature Granulocyte Absolute 0.02 K/mm3 (0.00-0.00); Immature Granulocyte Percent A 0.3 % (0.0-0.0); Lymphocytes Absolute Auto 2.41 K/mm3 (1.10-4.50); Lymphocytes Percent Auto 31.5 % (18.0-42.0); Mean Corpuscular HGB Conc 33.1 g/dL (32.0-36.0); Mean Corpuscular Hemoglobin 27.1 pg (27.0-31.0); Mean Platelet Volume 8.8 fl (9.2-11.8); Monocytes Absolute Auto 0.74 K/mm3 (0.10-0.90); Monocytes Percent Auto 9.7 % (2.0-11.0); Neutrophils Absolute Auto 4.4 K/mm3 (1.7-7.2); Platelet Count Result 421 K/mm3 (150-420); Red Blood Count 5.16 M/mm3 (4.20-5.40); Red Cell Distribution Width 13.8 % (11.6-14.4); White Blood Count 7.7 K/mm3 (4.8-10.8)
[2022-03-28 11:09] LABS: Add Urine Microscopic? YES; Appearance Urine Clear (Clear); Bilirubin Urine Negative (Negative); Blood Urine Negative (Negative); Color Urine Yellow (Yellow); Glucose Urine UA Negative (Negative); Ketones Urine Negative (Negative); Leukocyte Esterase Ur 3+ LEU/UL (Negative); Nitrate Urine Negative (Negative); Protein Urine Negative (Negative); Specific Grav Ur 1.015 (1.010-1.020); Urobilinogen Urine 0.2 mg/dL (0.2-1.0); pH Urine 6.5 (5.0-8.0)
[2022-03-28 11:16] LABS: Bacteria Urine 1+ /hpf; RBC Urine None seen /hpf (0-2); Squamous Epithelial Cell Urine Few /hpf (Few)
[2022-03-28 11:39] LABS: Alanine Aminotransferase 31 U/L (14-59); Albumin Level 3.4 g/dL (3.4-5.0); Alkaline Phosphatase 83 U/L (46-116); Anion Gap 4 mmol/L (8-16); Aspartate Amino Transferase 17 U/L (15-37); Bilirubin,Total 0.6 mg/dL (0.00-1.00); Blood Urea Nitrogen 10 mg/dL (7-18); Carbon Dioxide 32 mmol/L (21-32); Chloride 97 mmol/L (98-108); Estimated Glomerular Filt Rate > 60; Glucose 111 mg/dL (70-99); Osmolality Calculated 276 mOsm/kg (285-295); Potassium 4.3 mmol/L (3.5-5.1); Sodium 133 mmol/L (136-145); Total Protein 6.6 g/dL (6.4-8.2)
[2022-03-28 11:46] LABS: Calcium 8.9 mg/dL (8.5-10.1)
== END 2022-03-28 10:50 | disposition home or self-care (01) ==
LOC: CHSLAB 10:52
PROVIDERS: PCP Family Medicine; Visit Provider Family Medicine
DX: N30.00 Acute cystitis without hematuria (principal); E87.1 Hypo-osmolality and hyponatremia
CPT/HCPCS: 36415; 80053; 81001; 85025; 87086

== ENCOUNTER 2022-06-24 11:47 | Outpatient (CLI) | payer MEDICARE, SELFPAY ==
--- NOTE | ~2022-06-24 | MM_ITS ---
EXAMINATION: MM screening arley BI w roger HISTORY: Screening TECHNIQUE: Craniocaudal and mediolateral oblique 3-D tomosynthesis images were obtained and synthetic 2-D images were generated. CAD analysis was submitted and interpreted. COMPARISON: Comparison to multiple prior studies sequentially, with oldest reviewed study dated 05/20. BREAST PARENCHYMAL COMPOSITION: There are scattered areas of fibroglandular density. FINDINGS: There is no evidence of suspicious mass, calcification, or architectural distortion to sugg est malignancy in either breast. There has been no suspicious interval change. IMPRESSION: 1. No mammographic evidence of malignancy. 2. Recommend routine screening mammography in one year. BI-RADS Category 1: Negative Reviewed, dictated and finalized at location A. TER OPERATOR
== END 2022-06-24 11:48 | disposition home or self-care (01) ==
LOC: CHSIMG 11:49
PROVIDERS: PCP Family Medicine; Visit Provider Family Medicine
DX: Z12.31 Encounter for screening mammogram for malignant neoplasm of breast (principal)
CPT/HCPCS: 77063; 77067

== ENCOUNTER 2023-06-30 13:18 | Outpatient (CLI) | payer MEDICARE, SELFPAY ==
--- NOTE | ~2023-06-30 | MM_ITS ---
EXAMINATION: MM screening arley BI w roger HISTORY: Screening TECHNIQUE: Craniocaudal and mediolateral oblique 3-D tomosynthesis images were obtained and synthetic 2-D images were generated. CAD analysis was submitted and interpreted. COMPARISON: Comparison to multiple prior studies sequentially, with oldest reviewed study dated 05/20. BREAST PARENCHYMAL COMPOSITION: Not dense: There are scattered areas of fibroglandular density. FINDINGS: There is no evidence of suspicious mass, calcification, or architectural distortion to sugg est malignancy in either breast. There has been no suspicious interval change. IMPRESSION: 1. No mammographic evidence of malignancy. 2. Recommend routine screening mammography in one year. BI-RADS Category 1: Negative Reviewed, dictated and finalized at location A. HEAD PUNCHER
== END 2023-06-30 13:19 | disposition home or self-care (01) ==
LOC: CHSIMG 13:19
PROVIDERS: PCP Family Medicine; Visit Provider Family Medicine
DX: Z12.31 Encounter for screening mammogram for malignant neoplasm of breast (principal)
CPT/HCPCS: 77063; 77067

== ENCOUNTER 2024-07-08 12:17 | Outpatient (CLI) | payer MEDICARE, SELFPAY | END 2024-07-08 12:18 | disposition home or self-care (01) | PROVIDERS: PCP Internal Medicine; Visit Provider Internal Medicine | DX: Z12.31 Encounter for screening mammogram for malignant neoplasm of breast (principal) | CPT/HCPCS: 77063; 77067 ==

== ENCOUNTER 2024-10-12 11:26 | Outpatient (CLI) | payer MEDICARE, SELFPAY ==
--- OUTSIDE RECORDS SUMMARY | 2024-10-12 11:31 | XMS_ITS | CONTINUITY OF CARE DOCUMENT ---
Author Name larry juarez Address Unknown Organization [facility] Office Address [address] [place] [address] Phone [phone] Care Team Providers Care Contact Lens Curve Grinder Name Role Phone Kyle CURTIS, Bonifacio Unavailable CORA DUNHAM MD Unavailable [phone] CORA DUNHAM MD Unavailable INSURANCE PROVIDERS Payer name Policy type / Coverage type [place] red green party ID [facility] [id number] [place] [employer] Medicare [id number]
--- OUTSIDE RECORDS SUMMARY | 2024-10-12 11:31 | XMS_ITS | Data Portability ---
Author Organization [place] - [facility] [employer], Main Office Address [address] [place] [address] Care Team Providers Care Medical Policy Specialist Name Role Phone CORA DUNHAM Primary Care Provider CORA DUNHAM Referring Provider [phone] Assessment Encounter Date Assessment Date Assessment LastModified by Organization Details LastModified Time 08/27/2022 08/27/2022 HPI: Patient returns. She is here for pain in both her knees. She aggravated her right knee of weeks ago she was getting well off of the toilet. When she went to get up she felt a severe pain in the right knee as well as lateral aspect of the right ankle. Pain became very aggravating and she went to the emergency room on 08/22. They did x-rays on her knee which I reviewed. They show no definite evidence of fracture. She had moderately severe medial compartment osteoarthritis on x-rays. She has been using a cane. Patient has had previous x-rays show qfnj-rk-qaxt osteoarthritis in medial compartment of both knees. Shots have always worked well for her. She will take rdes-utm-wlbnwxb anti-inflammatori es at times and this seems to help as well. She has no interest in talking about surgical options with her knees. She was to have additional injections today. It has been 3 months since her last injections. Physical exam: 77-year-old female alert pleasant. She is walking with a cane for balance. No limp. She has mild to moderate effusions in both knees. Cjab-fj-iyvgmqmx tenderness over both medial joint lines palpation. No lateral joint line tenderness. No increased swelling in the calves. She has some mild tenderness over the ATFL in the right ankle. Some mild lateral swelling. No tenderness over the lateral talus or the lateral anterior process of the calcaneus. No tenderness in the foot. Range of motion in the knees is from 0-130 degrees bilaterally. A ChloraPrep was used on skin 20 mg Kenalog and 3 cc of 0.5% ropivacaine was injected into both knees. Risk infection discussed. Impression: 77-year-old female has severe medial compartment osteoarthritis in both knees. She continues to get good benefit from injections. Her ankle x-rays were normal today. She has some tenderness there she may have a very minimal lateral ankle sprain. She may just be having some tenderness of the soft tissue from over pronation. Overall the ankle is mildly symptomatic this point. Will see her back in 3 months injections in the knees again. Not available 08/27/2022 15:52:12 11/21/2022 11/21/2022 HPI: Patient returns. It has been 3 months since her last cortisone injection in both her knees. She does get good relief for over 2 months and wishes to continue with injections. She has severe medial compartment osteoarthritis in both knees. She does not wish to discuss surgery at this point. Physical exam: 77-year-old female alert pleasant. She is walking well without limp or assistance. She has mild effusions in both knees. Range of motion is from 2-135 degrees bilaterally. Gjql-qi-vdwlsrnm tenderness over both medial joint lines to palpation. No swelling in either lower extremity. After ChloraPrep was used on skin 20 mg Kenalog and 3 cc of 0.5% ropivacaine was injected in both knees. Risk infection discussed. Impression: 77-year-old female who has severe medial compartment osteoarthritis in both knees. She continues to get good relief from the injections and wishes to continue with them I will see her back in 3 months repeat injection. Not available 11/21/2022 15:34:04 02/25/2023 02/25/2023 HPI: Patient returns. She is here cortisone injections in both knees. Shots ago. She did good relief injections and wishes to continue with these. She has rkvb-qu-wuwe medial compartment osteoarthritis in both knees. She does not wish to discuss surgery. Physical exam: 77-year-old female alert. She walks well without limp or assistance. She has mild effusions in both knees. She has mild varus alignment to both knees. Range of motion is from 5-130 degrees bilaterally. Mild tenderness over both medial joint lines to palpation. ChloraPrep was used on skin 20 mg Kenalog and 3 cc of 0.5% ropivacaine was injected into both knees. Risk of infection discussed. Impression: 77-year-old female who has severe medial compartment osteoarthritis in both knees. She continues get good relief from injections. We will see her in 3 months. Not available 02/27/2023 08:38:16 05/27/2023 05/27/2023 HPI: Patient returns. She is here for cortisone injections into both of her knees. Last shots were 3 months ago. She continued good relief from the injections. She has severe medial compartment osteoarthritis in both knees. Physical exam: 77-year-old female alert pleasant. She has mild effusions in both knees. Range motion is from 3-135 degrees bilaterally. Mild tenderness over the medial joint lines to palpation. She walks well without limp or assistance today. After ChloraPrep was used on skin 20 mg Kenalog and 3 cc of 0.5% ropivacaine was injected into both knees. Impression: 77-year-old female who has severe medial compartment osteoarthritis in both knees. Shots continue to give her good benefit. I will see her in 3 months. Not available 05/27/2023 14:18:49 08/26/2023 08/26/2023 HPI: Patient returns. She is here for cortisone injections into both of knees. Last shots 3 months ago. She has severe medial compartment osteoarthritis in knees. She wishes to continue with injections. Physical exam: 78-year-old female very alert pleasant. She walks well without limp or assistance. She has mild effusions in both knees. Moderate tenderness over medial joint lines in both knees. Range motion is from 5-130 degrees bilaterally. No increased swelling in either lower extremity. After alcohol prep 20 mg Kenalog and 3 cc of 0.5% ropivacaine was injected into both knees. Impression: 78-year-old female who has severe medial compartment osteoarthritis in both knees. Shots continue give her good relief at least for 2 months. I will see her in 3 months. Not available 08/26/2023 14:45:28 Plan of Treatment Reminders Order Date Submit Date Provider Last Modified By Organization Details Last Modified Time Details Appointments None recorded. Lab None recorded. Referral None recorded. Procedures injection/a spiration joint/bursa (PROC) - in office procedure, administere d by provider 2023 024 [email or web address] In-Office Order, Internal Use Only DO Not Attach Compendium DO Not Attach Compendium, Do Not Delete/merge, [id number] 13:55:33 injection/a spiration joint/bursa (PROC) - in office procedure, administere d by provider 2023 024 [email or web address] In-Office Order, Internal Use Only DO Not Attach Compendium DO Not Attach Compendium, Do Not Delete/merge, [id number] 13:58:59 injection/a spiration joint/bursa (PROC) - in office procedure, administere d by provider 2022 023 [email or web address] In-Office Order, Internal Use Only DO Not Attach Compendium DO Not Attach Compendium, Do Not Delete/merge, [id number] 11:36:07 injection/a spiration joint/bursa (PROC) - in office procedure, administere d by provider 2022 023 In-Office Order, Internal Use Only DO Not Attach Compendium DO Not Attach Compendium, Do Not Delete/merge, [id number] 15:31:56 injection/a spiration joint/bursa (PROC) - in office procedure, administere d by provider 2022 023 [email or web address] In-Office Order, Internal Use Only DO Not Attach Compendium DO Not Attach Compendium, Do Not Delete/merge, [id number] 14:41:18 Surgeries None recorded. Imaging XR, ankle 2022 023 [facility], [address], [place], [address], 3 15:56:43 Medication Orders Kenalog 10 mg/mL suspension for injection 2023 024 [facility], [address], [place], [id number], 4 14:49:53 bupivacaine HCl 0.5 % (5 mg/mL) injection solution [address] [facility]805, [address], [place], [id number], 4 14:49:53 Kenalog 10 mg/mL suspension for injection [address] [facility]90727, [address], [place], [id number], 4 14:37:26 ropivacaine (PF) 5 mg/mL (0.5 %) injection solution [address] [facility]27353, [address], [place], [id number], 4 14:37:26 Kenalog 10 mg/mL suspension for injection [address] [facility]43796, [address], [place], [id number], 3 09:15:03 ropivacaine (PF) 5 mg/mL (0.5 %) injection solution [address] [facility]40730, [address], [place], [id number], 3 09:15:03 Kenalog 10 mg/mL suspension for injection [address] [facility]79475, [address], [place], [id number], 3 15:31:56 ropivacaine (PF) 5 mg/mL (0.5 %) injection solution 2022 023 [email or web address]2315, [address], [place], [id number], 3 15:31:56 Kenalog 10 mg/mL suspension for injection 2022 023 [email or web address] [facility] #25596, [address], [place], [id number], 3 14:29:22 ropivacaine (PF) 5 mg/mL (0.5 %) injection solution 2022 023 [email or web address]74419, [address], [place], [id number], 3 14:30:29 Patient TargetsNo targets recorded. Patient InstructionsNo instructions recorded. Reason for Referral None Reported. Results Created Date Observation Date Name Description Value Unit Range Abnormal Flag Note LastModifiedBy Organization Detail LastModifiedTime 08/28/19 23 XR, ankle No observ ation record ed. [facility] [address], [place], [address], 08/27/2022 15:49:05 Result Notes None recorded. Problems Name Problem SNOMED Code Status Onset Date Resolution Date Notes Provider Name and Address Organization Details Recorded Time Osteoarthr itis of knee 771815827 Active Not Available [facility] 3 02:48:08 Osteoarthr itis 195329002 Active Not Available [facility] 3 02:48:08 Bilateral osteoarthr itis of knees 8328650355330 07 Active 2022 JESUS MANUEL Ochoa, [facility] [employer] [facility] 3 14:40:04 Pain of right ankle joint 5779664451822 9106 Active 2022 JESUS MANUEL Ochoa, [facility] [employer] 3 15:16:57 Problem Notes None recorded. Procedures Surgical History Date Name Laterality Status Provider Name and Address Organization Details Recorded Time Appendectomy completed Not Available [facility] 07/09/2022 02:42:54 Hernia Repair completed Not Available [facility] 07/09/2022 02:42:54 Hysterectomy completed Not Available [facility] 07/09/2022 02:42:54 Imaging Results None recorded. Procedure Notes None recorded. Medical Equipment None Reported. Allergies Allergen ID Allergen Name Allergen Category Reaction Reaction Severity Criticality Documentation Date Start Date Code Code System Note Provider Name and Address Organization Details Recorded Time 4323 sulfur dioxide medicatio n Not available Not available Not available 07/09/2022 19624 79 RxNorm femal e infec tion Emely Chaney, ACCOUNTING OFFICE MANAGER null, [place] [facility] [employer] 14:28:14 Medications Name Sig Start Date Stop Date Status Note LastModified by Organization Details LastModified Time amoxicillin 500 mg capsule TK ONE C PO TID TAT 03/14 completed Not Available Not Available Not Available azithromyci n 250 mg tablet TK 2 TS PO ON DAY 1, THEN TK 1 T PO D FOR 4 DAYS 11/21 completed Not Available Not Available Not Available ofloxacin 0.3 % eye drops 11/21 completed Not Available Not Available Not Available hydrocodone 5 mg-acetamin ophen 325 mg tablet TAKE 1 TO 2 TABLETS BY MOUTH EVERY 6 HOURS NEEDED FOR ACUTE PAIN 11/21 completed Not Available Not Available Not Available promethazin e 12.5 mg tablet 11/21 completed Not Available Not Available Not Available lisinopril 20 mg tablet active Not Available Not Available Not Available bupivacaine HCl 0.5 % (5 mg/mL) injection solution in office 2023 active Not Available Not Available Not Avai lable atenolol 25 mg tablet 03/14 completed Not Available Not Available Not Available Nexium 40 mg capsule,del ayed release 03/14 completed Not Available Not Available Not Available metronidazo le 500 mg tablet 03/14 completed Not Available Not Available Not Available ciprofloxac in 500 mg tablet TAKE 1 TABLET BY MOUTH EVERY 12 HOURS 11/21 completed Not Available Not Available Not Available omeprazole 40 mg capsule,del ayed release TAKE 1 CAPSULE BY MOUTH DAILY active Not Available Not Available No t Available tramadol 50 mg tablet TAKE 1 TABLET BY MOUTH EVERY 6 HOURS NEEDED FOR PAIN 11/21 completed Not Available Not Available Not Available amoxicillin 500 mg tablet TAKE 1 TABLET BY MOUTH THREE TIMES DAILY UNTIL GONE FOR INFECTION active Not Available Not Available No t Available ketorolac 0.5 % eye drops 11/21 completed Not Available Not Available Not Available fluticasone propionate 0.005 % topical ointment 07/25 completed Not Available Not Available Not Available prednisolon e acetate 1 % eye drops,suspe nsion 11/21 completed Not Available Not Available Not Available ciprofloxac in 0.3 % eye drops 03/14 completed Not Available Not Available Not Available Kenalog 10 mg/mL suspension for injection in office 2023 active [facility]: 0003- 0494- 20 Not Available Not Available Not Available doxycycline monohydrate 100 mg capsule 07/25 completed Not Available Not Available Not Available triamcinolo ne acetonide 0.1 % topical ointment APPLY THIN LAYER TO AFFECTED AREA TWICE DAILY FOR 2 WEEKS active Not Available Not Available No t Available Xylocaine 20 mg/mL (2 %) injection solution In office injection administe red by the provider 11/13 completed Not Available Not Available Not Available lisinopril 20 mg-hydrochl orothiazide 25 mg tablet TAKE 1 TABLET BY MOUTH DAILY 11/21 completed Not Available Not Available Not Available hydrochloro thiazide 25 mg tablet 03/14 completed Not Available Not Available Not Available mupirocin 2 % topical ointment 07/12 completed Not Available Not Available Not Available metoprolol succinate ER 25 mg tablet,exte nded release 24 hr 03/14 completed Not Available Not Available Not Available lisinopril 10 mg-hydrochl orothiazide 12.5 mg tablet 03/14 completed Not Available Not Available Not Available SSD 1 % topical cream 07/12 completed Not Available Not Available Not Available ketoconazol e 2 % topical cream 07/12 completed Not Available Not Available Not Available ondansetron 4 mg disintegrat ing tablet DISSOLVE 1 TABLET ON THE TONGUE EVERY 6 HOURS NEEDED FOR NAUSEA OR VOMITING 11/21 completed Not Available Not Available Not Available SF 5000 Plus 1.1 % dental cream 03/30 completed Not Available Not Available Not Available fluticasone propionate 50 mcg/actuati on nasal spray,suspe nsion SHAKE LIQUID AND USE 2 SPRAYS IN EACH NOSTRIL DAILY 11/21 completed Not Available Not Available Not Available Premarin 0.625 mg/gram vaginal cream 03/30 completed Not Available Not Available Not Available metoprolol tartrate 25 mg tablet TAKE 1 TABLET BY MOUTH TWICE DAILY active Not Available Not Available No t Available lidocaine (PF) 10 mg/mL (1 %) injection solution In office injection administe red by the provider 11/13 completed [facility]: 0409- 4276- 17 Not Available Not Available Not Available lidocaine (PF) 5 mg/mL (0.5 %) injection solution In office injection administe red by the provider 11/21 completed Not Available Not Available Not Available Durezol 0.05 % eye drops INSTILL 1 DROP IN LEFT EYE FOUR TIMES DAILY FOR 1 WEEK 11/21 completed Not Available Not Available Not Available Floranex 1 million cell tablet TK 1 T PO D 11/21 completed Not Available Not Available Not Available ropivacaine (PF) 5 mg/mL (0.5 %) injection solution in office 2023 active Not Available Not Available Not Avai lable potassium chloride ER 20 mEq tablet,exte nded release TAKE 1 TABLET BY MOUTH TWICE DAILY WITH MEALS FOR 2 DAYS 11/21 completed Not Available Not Available Not Available Vitals Date Recorded Body height Provider Name an d Address Organization Details Last Updated DateTime 05/27/2023 154.94 cm Marce Fermin [facility] [employer] 05/27/2023 13:57:39 Date Recorded Body height Provider Name an d Address Organization Details Last Updated DateTime 08/27/2022 152.4 cm Marce Fermin [facility] [employer] 08/27/2022 14:39:50 Date Recorded Body height Body mass index (BMI) Body weight Provider Name and Address Organization Details Last Updated DateTime 11/21/2022 154.94 cm 34.1 kg/m2 59193.78 g Emely BRUCE Chaney [employer] [facility] [employer] 11/21/2022 14:38:43 Date Recorded Body height Provider Name an d Address Organization Details Last Updated DateTime 02/25/2023 154.94 cm JESUS MANUEL Ochoa [place] [facility] 02/25/2023 11:34:57 Social History None recorded. Functional Status Question Answer Note LastModified by Organizat ion Details LastModified Time What is your level of alcohol consumption? None [id number] Information not available 07/09/2022 Mental Status None recorded. Family History Relationship Description Onset Age of this Age Resolved Age Notes LastModified by Organization Details LastModified Time Father Kidney disease [email or web address] Not available 2022 14:31:16 Mother Heart disease [id number] Not available 07/09/2022 02:42:56 Mother Family history of stroke [id number] Not available 07/09/2022 02:42:56 Mother Hypertensive disorder [id number] Not available 07/09/2022 02:42:56 Father Family history of malignant neoplasm [email or web address] [id number] Not available 07/09/2022 02:42:56 Father Hypertensive disorder [id number] Not available 07/09/2022 02:42:57 Mother Kidney disease [email or web address] Not available 2022 14:31:21 Unspecified Relation Blood coagulation disorder bogdan gs [email or web address] Not available 11/21/2022 14:31:53 Medical History Condition Response BLINDNESS N KIDNEY STONES N BLADDER PROBLEMS N MRSA N CARPAL TUNNEL SYNDROME N OTHER # 1 N LUNG DISEASE/DISORDER N HISTORY OF DRUG ABUSE N RADIATION / CHEMOTHERAPY N COPD N Other # 2 N SPORTS INJURY N ANKLE PAIN N BLOOD DISEASES N SURGERY N SCHIZOPHRENIA N SHINGLES N SHOULDER PAIN N DEPRESSION (INCLUDING POST ) N BOWEL PROBLEMS N STROKE/TIA N ULCERS N KNEE PAIN N BENIGN PROSTATIC HYPERPLASIA N MYOCARDIAL INFARCTION N OBESITY N GERD/NAUSEA N ANEURYSM N URINARY/BLADDER/KIDNEY PROBLEMS N INPATIENT PSYCH CARE N CORONARY ARTERY DISEASE (CAD) N ADDICTION CONCERNS N USE OF BLOOD THINNERS N SKIN PROBLEMS N EMPHYSEMA N MUSCLE,JOINT OR BONE PROBLEMS N DVT N STOMACH ULCERS N BLOOD CLOTS N ASTHMA N USE OF NSAIDS N CONCUSSION OR SPINAL TRAUMA N GI PROBLEMS N Low Testosterone N NEUROPATHY N AIDS/HIV N FRACTURES N LIVER DISEASE N HYPERTENSION Y ELBOW PAIN N TOURETTE'S N Metal allergy N ANXIETY DISORDER N BLOOD TRANSFUSION N ANEMIA/BLOOD DISORDER N BIPOLAR DISORDER N BRONCHITIS N OSTEOARTHRITIS N TUBERCULOSIS N GLAUCOMA N FOOT PROBLEM N HEART VALVE DISORDERS N SOFT TISSUE INJURY N ALLERGIES/HAYFEVER N INFECTIOUS DISEASE N HEART ARRHYTHMIA N INSOMNIA N RHEUMATOID ARTHRITIS N HIGH CHOLESTEROL / HYPERLIPIDEMIA N HYPERTHYROIDISM N NEUROLOGICAL PROBLEMS N EDEMA N CHRONIC PAIN SYNDROME N HYPOTHYROIDISM N CAROTID BLOCKAGE N BACK / NECK PROBLEMS N HAVE YOU BEEN HOSPITALIZED OR SEEN IN [facility] IN THE PAST YEAR ? N BURSITIS N HERNIATED DISC N DIALYSIS N FIBROMYALGIA N OSTEOPOROSIS N ARTHRITIS Y NO SIGNIFICANT PAST MEDICAL HISTORY N PERIPHERAL NEUROPATHY N DIABETES, TYPE N HEARTBURN / REFLUX N HEPATITIS / LIVER DISEASE N PULMONARY DISEASE N GOUT N SLEEP DISORDER N ALZHEIMER'S DISEASE N HERPES N SEIZURES/EPILEPSY N HEADACHES/MIGRAINES N VASCULAR DISEASE N Blood Disorder N HIP PAIN N DIZZINESS N HEAD TRAUMA OR INJURY N HEART DISEASE/HEART PROBLEMS N KIDNEY DISEASE N MULTIPLE SCLEROSIS N CANCER: SPECIFY N CARDIAC ARRHYTHMIA N ANESTHESIA COMPLICATIONS N ATRIAL FIBRILLATION N PULMONARY EMBOLISM N AUTOIMMUNE DISEASE N Gynecological HistoryNo gynecological history recorded. Obstetrics History GPAL:G 0 P 0 0 0 0 Past Encounters Encounter ID Performer Location Encounter Start Date Encounter Closed Date Diagnosis/Indication Diagnosis SNOMED-CT Code Diagnosis ICD10 Code Diagnosis Note [id number] SAGE Nix [facility] [address] [facility] [address] [place], [place] [address] 07/25/2020 00:00:00 07/25/2020 15:48:10 [id number] Fox Nguyen MD [facility] [place] [address] [facility] [address] [place], [place] [address] 10/24/2020 00:00:00 10/24/2020 15:06:13 [id number] Fox Nguyen MD [facility] [place] [address] [facility] [address] [place] [address] 01/23/2021 00:00:00 01/23/2021 14:46:03 [id number] Fox Nguyen MD [facility] [place] [address] [facility] [address] [place] [address] 05/01/2021 00:00:00 05/01/2021 15:38:51 [id number] Fox Nguyen MD [facility] [place] [address] [facility] [address] [place] [address] 07/31/2021 00:00:00 07/31/2021 16:08:47 [id number] Fox Nguyen MD [facility] [place] [address] [place] [address] 11/13/2021 00:00:00 11/13/2021 11:34:02 [id number] Fox Nguyen MD [facility] [place] [address] [place] [address] 02/12/2022 00:00:00 02/12/2022 11:56:25 [id number] Fox Nguyen MD [facility] [place] [address] [place] [address] 05/21/2022 00:00:00 05/21/2022 14:56:14 [id number] Fox Nguyen MD [facility] [place] [address] [place] [address] 08/27/2022 14:29:08 08/27/2022 15:53:30 Bilateral osteoarthritis of knees 7523540838 42952 M17.0 Pain of ri ght ankle joint 8013996827 9846835 M25.571 [id number] MD DEBBIE Bullock[facility] [place] [address] [place] [address] 11/21/2022 14:11:19 11/21/2022 16:21:49 Bilateral osteoarthritis of knees 2054674894 19691 M17.0 [id number] Fox Nguyen MD [facility] [place] [address] [place] [address] 02/25/2023 11:30:02 02/27/2023 11:43:03 Bilateral osteoarthritis of knees 4099852189 71523 M17.0 [id number] Fox Nguyen MD [facility] [place] [address] [place] [address] 05/27/2023 13:54:18 05/27/2023 14:49:03 Bilateral osteoarthritis of knees 7956103250 02318 M17.0 [id number] Allen Tinoco MD [facility] [place] [address] [place] [address] 08/26/2023 13:51:33 08/26/2023 15:05:24 Bilateral osteoarthritis of knees 5976360485 03663 M17.0 Health Concerns Section Related Observation LastModified by Organization Detai ls LastModified Time None Recorded Concern Status LastModified by Organization Details LastModified Time None Recorded Advance Directives Directive None Recorded Payers Encounter Date Sequence Insurance Name Policy Number Policy Bright Covered Member ID Bright Member ID Guarantor Name 08/27/2022 1 [place] Margaux S Cruthis [id number] Margaux S Cruthis 08/27/2022 2 [employer] (MEDICARE SUPPLEMENT) Margaux S Cruthis [id number] Margaux S Cruthis 11/21/2022 1 [place] Margaux S Cruthis [id number] Margaux S Cruthis 11/21/2022 2 [employer] (MEDICARE SUPPLEMENT) Margaux S Cruthis [id number] Margaux S Cruthis 02/25/2023 1 [place] Margaux S Cruthis [id number] Margaux S Cruthis 02/25/2023 2 [employer] (MEDICARE SUPPLEMENT) Margaux S Cruthis [id number] Margaux S Cruthis 05/27/2023 1 [place] Margaux S Cruthis [id number] Margaux S Cruthis 05/27/2023 2 [employer] (MEDICARE SUPPLEMENT) Margaux S Cruthis [id number] Margaux S Cruthis 08/26/2023 1 [place] Margaux S Cruthis [id number] Margaux S Cruthis 08/26/2023 2 [employer] (MEDICARE SUPPLEMENT) Margaux S Cruthis [id number] Margaux S Cruthis OBGyn Episode No OBEpisode recorded.
[2024-10-12 11:46] LABS: Hematocrit 44.7 % (35.0-42.0); Mean Corpuscular HGB Conc 31.3 g/dL (32-36); Mean Corpuscular Volume 86.3 fL (78.0-102.0); Mean Platelet Volume 10.1 fl (9.2-11.8); Platelet Count Result 293 K/mm3 (150-420); Red Blood Count 5.18 M/mm3 (4.20-5.40); Red Cell Distribution Width 13.5 % (11.6-14.4); White Blood Count 8.4 K/mm3 (4.8-10.8)
[2024-10-12 12:50] LABS: Alanine Aminotransferase 16 U/L (6-35); Alkaline Phosphatase 108 U/L (38-126); Anion Gap 5 mmol/L (4-12); Aspartate Amino Transferase 26 U/L (14-36); Bilirubin,Total 0.5 mg/dL (0.2-1.3); Blood Urea Nitrogen 15 mg/dL (7-17); Carbon Dioxide 26 mmol/L (22-30); Chloride 104 mmol/L (98-107); Estimated Glomerular Filt Rate > 60; Glucose 96 mg/dL (65-110); Osmolality Calculated 280 mOsm/kg (285-295); Potassium 4.6 mmol/L (3.4-5.0); Sodium 135 mmol/L (137-145); Total Protein 6.9 g/dL (6.3-8.2)
[2024-10-12 12:59] LABS: NT Pro B Type Natriuretic Pept 870 pg/mL (19.9-100)
== END 2024-10-12 11:27 | disposition home or self-care (01) ==
LOC: CHSLAB 11:28
PROVIDERS: PCP Internal Medicine; Visit Provider Internal Medicine
DX: I35.0 Nonrheumatic aortic (valve) stenosis (principal); I10 Essential (primary) hypertension; M81.0 Age-related osteoporosis without current pathological fracture; I50.9 Heart failure, unspecified
CPT/HCPCS: 36415; 80053; 83880; 85027

== ENCOUNTER 2024-11-22 11:45 | Outpatient (CLI) | payer MEDICARE, SELFPAY ==
--- NOTE | ~2024-11-22 | DEXA_ITS ---
Bone Density Report Name: SRIDHAR BRITT Age: 79 Sex: Female Ethnicity: White Date of : 1945 Indication: postmenopausal; screening for osteoporosis; height loss; hysterectomy; Referring Provider: Leobardo Oshea Study: Bone densitometry was performed. Exam Date: November 22, 2024 Accession number: [id number] Bone Density: Region BMD T-score Z-score Classification AP Spine(L1-L4) 1.002 -0.4 2.2 Normal Femoral Neck (Left) 0.548 -2.7 -0.5 Osteoporosis Total Hip (Left) 0.642 -2.5 -0.5 Osteoporosis Femoral Neck (Right) 0.447 -3.6 -1.4 Osteoporosis Total Hip (Right) 0.594 -2.9 -0.9 Osteoporosis Femoral Neck Mean 0.497 -3.2 -0.9 Osteoporosis Total Hip Mean 0.618 -2.7 -0.7 Osteoporosis World Health Organization criteria for BMD impression classify patients as: Normal (T-score at or above -1.0), Osteopenia (T-score between -1.0 and -2.5), or Osteoporosis (T-score at or below -2.5). 10-year Fracture Risk: FRAX not reported because: Some T-score for Spine Total or Hip Total or Femoral Neck at or below -2.5 Clinical Information Provided by Patient: Has used the following medications: Vitamin D Has the following medical conditions: Hysterectomy Patient maximum height was 62. Menopause Age: 30 No regular weight bearing exercise Drinks caffeinated beverages Onset of menses at age 13 Number of children 2 Impression: The patient has osteoporosis, based on the Right Femoral Neck T-score. Discussion: INCREASED RISK OF FRACTURE. BONE DENSITY IS UNDESIRABLY LOW AT ONE OR MORE SKELETAL SITES, CONSISTENT WITH POSTMENOPAUSAL OSTEOPOROSIS. This patient's lowest T-score meets the World Health Organization's (WHO) criteria for osteoporosis at one or more sites (T-score -2.5 or below). In untreated patients, the risk of osteoporotic fracture increases approximately two-fold for each 1.0 SD decrease in T-score. Low bone density is not the only risk factor for fracture; also consider factors such as patient's age, frailty or poor health, risk of falling, risk of injury, previous osteoporotic fracture, family history of osteoporosis, cigarette smoking, low body weight, etc. Not everyone with low bone mineral density has osteoporosis; osteomalacia and other metabolic bone disorders should also be considered. Patients who have osteoporosis should be evaluated for specific diseases and conditions (secondary causes) that may cause or contribute to bone loss. The [place] [employer] (AACE) and National Osteoporosis Foundation (NOF) recommend pharmacologic intervention for all postmenopausal women whose T-score is in this range. The patient should follow a healthful lifestyle (good nutrition with adequate calcium and vitamin D, and appropriate weight-bearing exercise). Follow-Up: Consider a repeat BMD and Vertebral Fracture Assessment (VFA) exam in 2 years or sooner if medically necessary, to reassess this patient's status. Reported by: REGINE on 11/22/2024 1:05:00 PM. Reviewed, dictated and finalized at location A.
--- OUTSIDE RECORDS SUMMARY | 2024-11-22 11:49 | XMS_ITS | Clinical Summary ---
Author Organization [facility] Address [address] [place] [address] Care Team Providers Care Web Mobile Designer Name Role Phone Yaya Lewis MD Primary Care Provider [phone] Allergies Active Allergy Reactions Criticality Noted Date Comments Sulfa Antibiotics Other (see comment) 3 Vaginal discharge Medications metoprolol tartrate (LOPRESSOR) 25 MG tablet Take 1 tablet (25 mg total) by mouth 2 (two) times a day. Active lisinopril (PRINIVIL) 10 MG tablet Take 2 tablets (20 mg total) by mouth daily. Active aspirin EC (ASPIRIN 81) 81 MG tablet Take 1 tablet (81 mg total) by mouth daily. 03/26/2015 Active Esomeprazole Magnesium (NEXIUM) 10 MG Pack Take 60 mg by mouth daily. Active HYDROcodone-damari taminophen (NORCO) 5-325 MG tabletIndicatio ns:Acute Pain < 7 Day Supply Take 1-2 tablets by mouth every 6 (six) hours as needed. Indications: Acute Pain < 7 Day Supply 20 tablet 08/22/2022 Active Social History Tobacco Use Types Packs/Day Years Used Date Smoking Tobacco: Never Smokeless Tobacco: Never Tobacco Cessation:Counseling Given: Not Answered Comments No Sex and Gender Information Value Date Recorded Sex Assigned at Not on file Legal Sex Female 4:46 PM CDT Gender Identity Not on file Sexual Orientation Not on file Last Filed Vital Signs Vital Sign Reading Time Taken Comments Blood Pressure 168/71 08/22/2022 1:30 PM CDT Pulse 85 08/22/2022 12:17 PM CDT Temperature 37.1 C (98.7 F) 08/22/2022 12:17 PM CDT Respiratory Rate 18 08/22/2022 12:17 PM CDT Oxygen Saturation 97% 08/22/2022 1:30 PM CDT Inhaled Oxygen Concentration - - Weight 86.2 kg (190 lb) 08/22/2022 12:17 PM CDT Height 157.5 cm (5' 2) 08/22/2022 12:17 PM CDT Body Mass Index 34.75 08/22/2022 12:17 PM CDT Plan of Treatment Health Maintenance Due Date Last Done Comments Hepatitis C 1963 DTaP, Tdap and Td Vaccines ( 1 - Tdap) 1965 Zoster Vaccines (1 of 2) 1996 Annual Medicare Wellness Visit 08/10/2011 Dexa Scan (General) 08/10/2011 Pneumococcal Vaccine: 50+ Ye ars (2 of 2 - PPSV23) 10/28/2016 10/29/2015 RSV Immunization or 60+ Years (1 - 1-dose 75+ series) 2021 COVID-19 Vaccine (1 - 2023-2 5 season) 2024 Meningococcal B Vaccine Aged Out No l onger eligible based on patient's age to complete this topic Meningococcal Vaccine Aged Out No wilmer katelynn eligible based on patient's age to complete this topic RSV Immunizations Under 20 Months Aged Out No longer eligible based on patient's age to complete this topic Insurance [place] [address] [place] [id number] [facility] Care Teams Web Mobile Designer Relationship Specialty Start Date End Date Yaya Lewis MD [address] [place] [address] PCP - General FAMILY PRACTICE 08/22/22
--- OUTSIDE RECORDS SUMMARY | 2024-11-22 11:49 | XMS_ITS | Data Portability ---
Author Organization [facility] Normal Address [address] [place] [address] Care Team Providers Care Heavy Forging Machine Operator Name Role Phone CORA DUNHAM Primary Care Provider Assessment Encounter Date Assessment Date Assessment LastModified by Organization Details LastModified Time 08/30/2019 08/30/2019 Annual gynecological exam performed. Patient will come back in a year unless there are new symptoms. Vaginal vault prolapse, cystocele, and rectocele. She prefers to avoid surgery and didn't like wearing a pessary so she'll watch and wait for now. She is aware I would not perform surgery due to h/o hysterectomy, so I'd refer to urogynecologist if she opts for surgery in the future. No pap needed due to age and s/p hysterectomy. Mammogram was normal in June per report. Colonoscopy normal a few years ago per report [id number] Not available 08/30/2019 12:36:17 Plan of Treatment Reminders Order Date Submit Date Provider Last Modified By Organization Details Last Modified Time Details Appointments None record ed. Lab None record ed. Referral None record ed. Procedures None record ed. Surgeries None record ed. Imaging None record ed. Medication Orders None record ed. Patient TargetsNo targets recorded. Patient InstructionsNo instructions recorded. Reason for Referral None Reported. Results Created Date Observation Date Name Description Value Unit Range Abnormal Flag Note LastModifiedBy Organization Detail LastModifiedTime 08/30/19 20 08/30/2019 fecal occul t blood , stool Occult Blood negati ve Not Available Normal [address], [place], [address], 08/30/2019 12:51:35 Result Notes None recorded. Problems Name Problem SNOMED Code Status Onset Date Resolution Date Notes Provider Name and Address Organization Details Recorded Time Disorder of pelvic region of trunk Active 2015 Other female genital prolapse;P ractice ID: 0001 Not Available [facility] 0 16:24:45 Inguinal hernia 065583197 Active 2015 Unil inguinal hernia, w/o obst or gangr, not spcf as recur;Prac jaquelin ID: 0001 Not Available [facility] 0 16:24:45 Urinary tract infectiou s disease 97998581 Active 2015 Urinary tract infection, site not specified; Practice ID: 0001 Not Available [facility] 0 16:24:45 Vaginal wall prolapse 248287009 Active 2018 Other prolapse of vaginal walsh without mention of uterine prolapse;R ecorded Elsewhere: No Locatio n: [facility] rce: EHR Chroni c: N Practice ID: 0001 Billa ble Time: 11:30:00 AM Not Available [facility] 0 16:24:45 Vaginal enterocel e 733629490 Active 2012 Vaginal enterocele , congenital or acquired;P ractice ID: 0001 Not Available [facility] 0 16:24:45 Disorder of pelvic region of trunk Active 2018 Cystocele, unspecifie d;Recorded Elsewhere: No Locatio n: [facility] rce: EHR Chroni c: N Practice ID: 0001 Billa ble Time: 11:30:00 AM Not Available [facility] 0 16:24:46 Leukorrhe a 628617229 Active 2014 Leukorrhea , not specified as infective; Recorded Elsewhere: No Locatio n: [facility] rce: EHR Chroni c: N Practice ID: 0001 Billa ble Time: 01:00:00 PM Not Available [facility] 0 16:24:47 Vaginolab ial hernia Active 2016 disorder or lesion vulva;Alex rded Elsewhere: No Locatio n: [facility] rce: EHR Chroni c: N Practice ID: 0001 Billa ble Time: 10:30:00 AM Not Available [facility] 0 16:24:48 Problem Notes None recorded. Procedures Surgical History Date Name Laterality Status Provider Name and Address Organization Details Recorded Time hernia repair [facility] 08/26/2019 12:38:34 hysterectomy completed [facility] 08/26/2019 12:38:53 Imaging Results None recorded. Procedure Notes None recorded. Medical Equipment None Reported. Allergies Allergen ID Allergen Name Allergen Category Reaction Reaction Severity Criticality Documentation Date Start Date Code Code System Note Provider Name and Address Organization Details Recorded Time 225 Substance with sulfonami de structure and antibacte rial mechanism of action (substanc e) medicatio n Not available Not available Not available 08/26/2019 [id number] SNOMED [facility] 0 12:37:38 Medications Name Sig Start Date Stop Date Status Note LastModified by Organization Details LastModified Time flaxseed oil active Not Available Not Available Not Available folic acid 20 mg capsule active Prescrib ed Elsewher e: Yes Loca tion: [facility] M odify By: [email or web address] trick En counter DateTime : 12/30/19 13 10:30:00 AM Not Available Not Available Not Available ciproflox acin 500 mg tablet 08/29 completed Not Available Not Available Not Available omeprazol e 40 mg capsule,d elayed release 08/29 completed Not Available Not Available Not Available Nexium 20 mg capsule,d elayed release take 1 capsule by oral route every day active Prescrib ed Elsewher e: Yes Loca tion: [facility] M odify By: [email or web address] trick En counter DateTime : 12/30/19 13 10:30:00 AM Not Available Not Available Not Available fluticaso ne propionat e 0.005 % topical ointment 08/29 completed Not Available Not Available Not Available Macrobid 100 mg capsule take 1 capsule by oral route every 12 hours with food, as directed 10/21 completed Prescrib ed Elsewher e: No Locat ion: Gina sanchez [facility] odify By: sarah connollyunter DateTime : 12/25/19 16 02:00:00 PM Not Available Not Available Not Available aspirin 500 mg tablet take 2 tablet by oral route every 6 hours as needed active Prescrib ed Elsewher e: Yes Loca tion: Gina sanchez [facility] odify By: [email or web address] trick En counter DateTime : 12/30/19 13 10:30:00 AM Not Available Not Available Not Available flaxseed oil 1,000 mg capsule active Prescrib ed Elsewher e: Yes Loca tion: Gina sanchez [facility] odify By: jimbo Dubon ter DateTime : 01/30/20 18 10:30:00 AM Not Available Not Available Not Available Flagyl 500 mg tablet take 1 tablet by oral route every 12 hours for 7 days 03/21 completed Prescrib ed Elsewher e: No Locat ion: Gina sanchez [facility] odify By: heidi Dubon ter DateTime : 03/15/20 14 01:00:00 PM Not Available Not Available Not Available doxycycli ne monohydra te 100 mg capsule 08/29 completed Not Available Not Available Not Available cranberry fruit 400 mg capsule active Prescrib ed Elsewher e: Yes Loca tion: Gina sanchez [facility] odify By: [email or web address] trick En counter DateTime : 12/30/19 13 10:30:00 AM Not Available Not Available Not Available lisinopri l 20 mg-hydroc hlorothia zide 25 mg tablet 08/29 completed Not Available Not Available Not Available lisinopri l 5 mg tablet take 1 tablet by oral route every day active Prescrib ed Elsewher e: Yes Loca tion: Gina sanchez [facility] odify By: jimbo Dubon ter DateTime : 01/30/20 18 10:30:00 AM Not Available Not Available Not Available mupirocin 2 % topical ointment 08/29 completed Not Available Not Available Not Available SSD 1 % topical cream 08/29 completed Not Available Not Available Not Available ketoconaz ole 2 % topical cream 08/29 completed Not Available Not Available Not Available fluticaso ne propionat e 50 mcg/actua tion nasal spray,carlos a pension 08/29 completed Not Available Not Available Not Available Premarin 0.625 mg/gram vaginal cream Insert 0.5 applicat orsful every day by vaginal route. active Not Available Not Available No t Available metoprolo l tartrate 25 mg tablet take 1 tablet by oral route 2 times every day active Prescrib ed Elsewher e: Yes Loca tion: [facility] odify By: [email or web address] z Encoun ter DateTime : 01/30/20 18 10:30:00 AM Not Available Not Available Not Available aspirin active Not Available Not Avail able Not Available cranberry active Not Available Not Leonie ilable Not Available Fish Oil active Not Available Not Avai lable Not Available metoprolo l tartrate active Not Available Not Available Not Available folic acid active Not Available Not Available Not Available lisinopri l active Not Available Not Available Not Available Nexium active Not Available Not Availa ble Not Available Fish Oil 100 mg-160 mg-1,000 mg capsule active Prescrib ed Elsewher e: Yes Loca tion: [facility] odify By: [email or web address] trick En counter DateTime : 12/30/19 13 10:30:00 AM Not Available Not Available Not Available Osphena 60 mg tablet take 1 tablet by oral route every day with food 2015 active Prescrib ed Elsewher e: No Locat ion: [facility] odify By: nidhi Benitesou nter DateTime : 06/19/19 16 10:00:00 AM Not Available Not Available Not Available Vitals Date Recorded Body height Body mass index (BMI) Body weight Systolic And Diastolic Provider Name and Address Organization Details Last Updated DateTime 08/30/2019 157.48 cm 34.8 kg/m2 45888.55 g 169/91 mm[Hg] Claudia Galdamez [facility] 08/30/2019 12:09:39 Social History None recorded. Functional Status None recorded. Mental Status None recorded. Family History Relationship Description Onset Age of this Age Resolved Age Notes LastModified by Organization Details LastModified Time Maternal Aunt Tuberculosis bora whittaker Not available 08/26/2019 12:38:11 Notes:Maternal aunt: Leobadro cortés Medical History Condition Response Other Y Hypertension Y Gynecological History Statement/Question Response Date of Last Pap Smear Current Control Method Hysterectom y Date of LMP 05/11/1975 LMP Approximate Obstetrics History GPAL:G 2 P 2 0 0 0 Type Value Full Term 2 Total 2 Past Encounters Encounter ID Performer Location Encounter Start Date Encounter Closed Date Diagnosis/Indication Diagnosis SNOMED-CT Code Diagnosis ICD10 Code Diagnosis Note [id number] Holly Hdz MD Normal [address] [address] 08/30/2019 11:54:34 08/30/2019 12:45:24 Routine gynecologic examination done 3891848428 9101 Z01.419 Health Concerns Section Related Observation LastModified by Organization Detai ls LastModified Time None Recorded Concern Status LastModified by Organization Details LastModified Time None Recorded Advance Directives Directive None Recorded Payers Insurance Date Sequence Insurance Name Policy Number Policy Bright Covered Member ID Bright Member ID Guarantor Name 12/30/2019 1 [place] Margaux Janice Saldivar [id number] Margaux Saldivar 08/30/2019 2 [employer] (MEDICARE SUPPLEMENT) Margaux Yariel [id number] Margaux Yariel Notes Date Note Type Note Provider Name and Address Organization Details Recorded Time 08/30/2019 text/html She has a bulge now that she's not wearing pessary but no bleeding or discharge. No pelvic pain. Janice Hdz [facility] 08/30/2019 12:37:20 OBGyn Episode Ob Episode Information Episode Created Date Number of Fetuses Patient Bloodtype Patient rh Status Prepregnancy Weight lbs Domestic Partner Domestic Partner Phone Father Name Developmental Electronics Assembler Status 08/30/19 20 1 CLOSED Fetus Data First Name Last Name Admitted to NICU Weight (g) Sex Living Outcome Pediatric Complications Fetus ID Race Codes Race Delivery Type 2267.96 F Full Term 686 Vaginal Delivery Martin Calculation Initial Martin Date Initial Exam Date Initial Exam Provider Initial Ultrasound Date Last Menstrual Period Date Ultra Sound Weeks Gestation 0 Eighteen To Twenty Week Martin Update Ultra Sound Date Fundal Height At Umbil Quickening Date Ultra Sound Latest Weeks Gestation Final Martin Confirmed By Final Martin Confirmed Date Final Martin Date Ultra Sound Latest Days Gestation 0 0 Menstrual History Last Menstrual Date Menses Monthly On Bcp Conception Prior Menses Frequency Hcg Plus Date Menarche Onset Age Delivery Information Delivery Date Delivery Type Labor Anesthesia Weeks Gestation Incision Type Labor Labor Length Hrs Delivered By Post Complications Tubal Sterilization Discharge Date Comments 3 [place]a Discharge Information Feeding Method Contraceptive Method Maternal HG B and HCT Levels Ob Episode Information Episode Created Date Number of Fetuses Patient Bloodtype Patient rh Status Prepregnancy Weight lbs Domestic Partner Domestic Partner Phone Father Name Developmental Electronics Assembler Status 08/30/19 20 1 CLOSED Fetus Data First Name Last Name Admitted to NICU Weight (g) Sex Living Outcome Pediatric Complications Fetus ID Race Codes Race Delivery Type 4479.22 1 F Full Term 687 Martin Calculation Initial Martin Date Initial Exam Date Initial Exam Provider Initial Ultrasound Date Last Menstrual Period Date Ultra Sound Weeks Gestation 0 Eighteen To Twenty Week Martin Update Ultra Sound Date Fundal Height At Umbil Quickening Date Ultra Sound Latest Weeks Gestation Final Martin Confirmed By Final Martin Confirmed Date Final Martin Date Ultra Sound Latest Days Gestation 0 0 Menstrual History Last Menstrual Date Menses Monthly On Bcp Conception Prior Menses Frequency Hcg Plus Date Menarche Onset Age Delivery Information Delivery Date Delivery Type Labor Anesthesia Weeks Gestation Incision Type Labor Labor Length Hrs Delivered By Post Complications Tubal Sterilization Discharge Date Comments 4 Daisy Discharge Information Feeding Method Contraceptive Method Maternal HG B and HCT Levels
--- NOTE | 2024-11-22 11:56 | ECHO_ITS ---
Patient Info Name: Margaux Saldivar Age: 79 years : 1945 Gender: Female Ht: 62 in Wt: 180 lbs BSA: 1.92 m2 HR: 74 bpm BP: 231 / 110 mmHg Technical Quality: Good Exam Date: 11/22/2024 11:59 AM Patient Status: O Admit Date: 11/22/2024 Exam Type: CA echo doppler color flow Complete two-dimensional, color flow and Doppler transthoracic echocardiogram is performed. Staff Referring Physician: Leobardo Oshea MD Case Manager: Nunu Leon Attending Provider: Leobardo Oshea MD Summary 1. Complete two-dimensional, color flow and Doppler transthoracic echocardiogram is performed. 2. Left ventricular chamber dimension is normal. 3. Left ventricular systolic function is normal, estimated at 60-65. 4. There is mild concentric increased left ventricular wall thickness. 5. The left ventricular diastolic function is grade I diastolic dysfunction. 6. E/e' 17 is elevated. 7. Left atrial chamber dimension is mildly enlarged. 8. There is severe aortic valve sclerosis. 9. There is severe aortic valve stenosis with a peak velocity of 456 cm/s, mean gradient of 40 mmHg, and aortic valve area of 0.6 cm2. 10. There is mild aortic valve regurgitation. 11. There is mild mitral valve regurgitation. 12. There is mild tricuspid valve regurgitation. 13. Mild pulmonary hypertension, estimated pulmonary arterial systolic pressure is 43 mmHg. 14. There is trace pulmonic regurgitation. Left Ventricle E/e' 17 is elevated. Left ventricular chamber dimension is normal. Left ventricular systolic function is normal, estimated at 60-65. There is mild concentric increased left ventricular wall thickness. The left ventricular diastolic function is grade I diastolic dysfunction. Right Ventricle Right ventricular chamber dimension is normal. Right ventricular systolic function is normal and with normal TAPSE 2.1 cm. Left Atria Left atrial chamber dimension is mildly enlarged. Right Atria Right atrial chamber dimension is normal. Aortic Valve The aortic valve is trileaflet. There is severe aortic valve sclerosis. There is severe aortic valve stenosis with a peak velocity of 456 cm/s, mean gradient of 40 mmHg, and aortic valve area of 0.6 cm2. There is mild aortic valve regurgitation. Pulmonic Valve There is trace pulmonic regurgitation. Mitral Valve There is no mitral valve stenosis. There is mild mitral valve regurgitation. Tricuspid Valve There is mild tricuspid valve regurgitation. Mild pulmonary hypertension, estimated pulmonary arterial systolic pressure is 43 mmHg. Pericardium/Pleural There is no pericardial effusion. Inferior Vena Cava Normal inferior vena cava with >50% collapse upon inspiration consistent with normal right atrial pressure, 5 mmHg. Aorta The aortic root size at the sinus of Valsalva is normal. Left Ventricular Outflow Tract Name Value Normal LVOT 2D LVOT Diameter 1.8 cm LVOT Doppler LVOT Peak Velocity 98 cm/s LVOT Peak Gradient 4 mmHg LVOT Mean Gradient 3 mmHg LVOT VTI 27 cm LVOT VTI/AV VTI Ratio 0.2 LVOT Stroke Volume 70 ml LVOT CO 4.4 l/min LVOT CI 2.3 l/min/m2 Pulmonic Valve Name Value Normal PV Doppler PV Peak Velocity 92 cm/s PV Peak Gradient 3 mmHg Mitral Valve Name Value Normal MV Regurgitation Doppler MR Peak Gradient 122 mmHg MV Diastolic Function MV E Peak Velocity 94 cm/s MV A Peak Velocity 83 cm/s MV E/A 1.1 MV Decel Time (PW) 181 ms MV Annular TDI MV E/e' (Septal) 18.9 MV E/e' (Lateral) 16.5 MV E/e' (Average) 17.7 Tricuspid Valve Name Value Normal TV Regurgitation Doppler TR Peak Velocity 308 cm/s TR Peak Gradient 38 mmHg Estimated PAP/RSVP RA Pressure 5 mmHg <=5 PA Systolic Pressure 43 mmHg <36 RV Systolic Pressure 43 mmHg <36 TV Annular TDI TV Lateral Maddie s' Velocity 11.3 cm/s >=9.5 Aortic Valve Name Value Normal AV 2D/MM AV Area (Planimetry) 0.7 cm2 AV Doppler AV Peak Velocity 456 cm/s AV Peak Gradient 69 mmHg AV Mean Gradient 40 mmHg AV VTI 116 cm AV Area (Cont Eq VTI) 0.6 cm2 >=3.0 AV Area (Cont Eq Pranav) 0.5 cm2 AV DI (Pranav) 0.22 AV Regurgitation 2D LVOT Area 2.5 cm2 Ventricles Name Value Normal LV Dimensions 2D/MM IVS Diastolic Thickness (2D) 1.2 cm 0.6-1.0 LVID Diastole (2D) 3.5 cm 3.8-5.2 LVIW Diastolic Thickness (2D) 1.0 cm 0.6-0.9 LVID Systole (2D) 2.6 cm 2.2-3.5 LVOT Diameter 1.8 cm LV Mass (2D Cubed) 116.33 g 67.00-162.00 LV Mass Index (2D Cubed) 60 g/m2 43-95 Relative Wall Thickness (2D) 0.54 <=0.42 LV Fractional Shortening/Ejection Fraction 2D/MM LV Fractional Shortening (2D) 28 % 27-45 LV EF (2D Teichholz) 55 % LV Diastolic Volume (4C MOD) 80 ml LV EF (4C MOD) 55 % LV Diastolic Volume (2C MOD) 84 ml LV EF (2C MOD) 63 % LV Diastolic Volume (BP MOD) 81 ml 46-106 LV Diastolic Volume Index (BP MOD) 42 ml/m2 29-61 LV Systolic Volume (BP MOD) 33 ml 14-42 LV Systolic Volume Index (BP MOD) 17 ml/m2 8-24 LV EF (BP MOD) 59 % 54-74 LV Diastolic Length (4C) 8.0 cm LV Systolic Length (4C) 6.1 cm LV Stroke Volume (4C MOD) 44 ml Atria Name Value Normal LA Dimensions LA Volume (4C A-L) 62 ml LA Volume (BP A-L) 62 ml RA Dimensions RA Systolic Major Embarrass Length (4C) 5.3 cm 2.2-2.8 RA Area (4C) 16.6 cm2 <=18.0 Report Signatures
[2024-11-22 13:08] LABS: Add Urine Microscopic? YES; Appearance Urine Clear (Clear); Glucose Urine UA Negative (Negative); Leukocyte Esterase Ur 3+ (Negative); Nitrate Urine Negative (Negative); Specific Grav Ur 1.010 (1.010-1.020)
== END 2024-11-22 11:46 | disposition home or self-care (01) ==
PROVIDERS: PCP Internal Medicine; Visit Provider Internal Medicine
DX: I35.0 Nonrheumatic aortic (valve) stenosis (principal); I10 Essential (primary) hypertension; M81.0 Age-related osteoporosis without current pathological fracture
CPT/HCPCS: 77080; 81001; 87086; 93306